=== PATIENT | female | born 1960 | race Caucasian/White ===

== ENCOUNTER → 2016-09-14 | Emergency (ER) | payer OTHER ==
[~2016-09-14] MED LIST: KETOROLAC TROMETHAMINE 60 MG/2 ML VIAL IM ONE; KETOROLAC TROMETHAMINE 60 MG/2 ML VIAL ONE; LIDOCAINE 5% TOPICAL PATCH TP ONE; OXYCODONE/APAP 5/325MG COMBO TABLET ONE; OXYCODONE/APAP 5/325MG COMBO TABLET PO ONE
[2016-09-14 07:02] VITALS: BP 157/96; PULSE 82; TEMP 99.6; BMI 29.0
--- NOTE | 2016-09-14 07:49 | PDOC ---
Attending Attestation - Resident Resident Name: Ernie Shane - ED Attending Attestation I have performed the following: I have examined & evaluated the patient, The case was reviewed & discussed with the resident, I agree w/resident's findings & plan, Exceptions are as noted - HPI HPI: 09/14/16 08:28 This is a 55 yo F with a history of HIV who presents to the Er with a complaint of severe left hip pain which began several days ago Pt has difficulty ambulating She has severe pain when she places weight on her left leg No trauma No fevers or chills No prior episodes like this - Physicial Exam PE: 09/14/16 08:31 On examination Left lateral hip tender to palpation No erythema Pain with leg motion No obvious signs of trauma - Medical Decision Making 09/14/16 08:32 Musculoskeletal pain R/o fracture Will give pain medications Will re assess Pt given Toradol and lidoderm patch Upon reassessment, pt feels much better she is seated on chair comfortably Will discharge to home Follow up with PMD Return to the ER for any other concerns or complaints
--- NOTE | 2016-09-14 07:56 | PDOC ---
History of Present Illness - General Chief Complaint: Pain, Acute Stated Complaint: LFT LEG PAIN Time Seen by Provider: 09/14/16 07:27 History Source: Patient Exam Limitations: No Limitations - History of Present Illness Initial Comments: 55 yo F with h/o HIV diagnosed 2 years ago, last CD4 count in 06/2016 was 1317, goes to [facility] and IDDM2 presented to the ED with L upper thigh pain x 2 days. 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 Denies trauma, fall, fever, chills , chest pain, sob. 09/14/16 09:52 Pain is minimally relieved with percocet. Will give toradol IM and lidocaine patch. 09/14/16 09:59 X-ray of L thigh shows no fracture. Past History - Past Medical History Allergies/Adverse Reactions: Allergies Allergy/AdvReac Type Severity Reaction Status Date / Time ceftriaxone sodium Allergy Severe Rash, hives Verified 06/17/15 16:06 [From Rocephin] Home Medications: Ambulatory Orders Albuterol Sulfate Inhaler - [Ventolin HFA Inhaler -] 2 inh PO Q6H #1 inh Abacavir/Dolutegravir/Lamivudi [Triumeq Tablet] 1 each PO DAILY #30 tablet 09/06 Alcohol Antiseptic Pads [Easy Touch Alcohol Prep Pads] 1 each TP BID #1 box Bacitracin - [Bacitracin Topical Ointment -] 1 applic TP TID #1 tube 09/06/16 Blood Sugar Diagnostic [Freestyle Test Strips] 1 each MC BID #1 box 09/06/16 Gabapentin [Neurontin] 300 mg PO HS #30 capsule 09/06/16 Insulin Glargine,Hum.rec.anlog [Touwallyo Solostar] 18 unit SQ HS #1 box 09/06/16 Insulin Lispro [Humalog Kwikpen U-100] 1 unit SQ TID #1 insuln.pen 09/06/16 Miscellaneous Medical Supply [Lancets] 1 each TD ASDIR #1 box 09/06/16 Valacyclovir HCl [Valtrex -] 1,000 mg PO TID #21 tablet 09/06/16 Pen Needle, Diabetic [Pentips] 1 each SQ HS #1 box 09/08/16 Lidocaine 5% Patch [Lidoderm -] 1 patch TP DAILY #7 patch 09/14/16 Anemia: No Asthma: Yes ( A CHILD) Cancer: No Cardiac Disorders: No CVA: No COPD: No CHF: No Dementia: No Diabetes: Yes Dialysis: Yes GI Disorders: No Disorders: No HTN: No Hypercholesterolemia: No HIV: Yes Liver Disease: No Psychiatric Problems: No Seizures: No Thyroid Disease: No Other medical history: Neuropathy - Surgical History Abdominal Surgery: No Appendectomy: No Cardiac Surgery: No Cholecystectomy: No Lung Surgery: No Neurologic Surgery: No Orthopedic Surgery: No - Reproductive History Cervical CA: No Dysfunctional Uterine Bleeding: No Ectopic : No Endometrial CA: No Polycystic Ovaries: No Tubal Ligation: No - Psycho/Social/Smoking Cessation Hx Anxiety: No Suicidal Ideation: No Smoking Status: No Smoking History: Current every day smoker Have you smoked in the past 12 months: Yes Number of Cigarettes Smoked Daily: 2 If you are a former smoker, when did you quit?: 3 Cigars Per Day: 0 Information on smoking cessation initiated: Yes 'Breaking Loose' booklet given: 09/27/13 Hx Alcohol Use: No Drug/Substance Use Hx: No Substance Use Type: None Hx Substance Use Treatment: No (N/A) Review of Systems - Review of Systems Able to Perform ROS?: Yes Is the patient limited Bahamian proficient: No Constitutional: No: Chills, Fever Respiratory: No: Cough, Shortness of Breath Cardiac (ROS): No: Chest Pain ABD/GI: No: Nausea, Vomiting Musculoskeletal: Yes: Joint Pain, Muscle Pain *Physical Exam - Vital Signs Last Vital Signs Temp Pulse Resp BP Pulse Ox 99.6 F 82 18 157/96 100 09/14/16 06:50 09/14/16 06:50 09/14/16 06:50 09/14/16 06:50 09/14/16 06:50 - Physical Exam General Appearance: No: Apparent Distress Respiratory/Chest: positive: Lungs Clear, Normal Breath Sounds Cardiovascular: positive: Regular Rhythm, Regular Rate, S1, S2. negative: Murmur Gastrointestinal/Abdominal: positive: Normal Bowel Sounds. negative: Tenderness Extremity: positive: Normal Range of Motion. negative: Cyanosis, Pedal Edema, Swelling, Calf Tenderness Neurologic: positive: Fully Oriented, Alert, Motor Strength 09/17 ED Treatment Course - RADIOLOGY Radiology Studies Ordered: Category Date Time Status FEMUR-LEFT [RAD] Stat Radiology 09/14/16 07:44 Ordered Medical Decision Making - Medical Decision Making 09/14/16 07:56 Will obtain X-ray to r/o acute pathology and give percocet for pain. May discharge if pain becomes better. 09/14/16 11:19 Patient feels much better after receiving toradol IM and lidocaine patch. Will discharge the patient home. *DC/Admit/Observation/Transfer Diagnosis at time of Disposition: Left thigh pain - Discharge Dispostion Disposition: HOME Condition at time of disposition: Fair Admit: No - Prescriptions Prescriptions: Lidocaine 5% Patch [Lidoderm -] 1 patch TP DAILY #7 patch - Referrals Referrals: Yelitza Pearson MD [Primary Care Provider] - - Patient Instructions Printed Discharge Instructions: DI for Leg Pain Additional Instructions: Please follow up with your primary care doctor, who can check blood-work for your leg pain if it becomes chronic. Please apply the lidocaine patch as directed by pharmacy. Please return to the emergency department or your primary care doctor for worsening or continued symptoms. - Post Discharge Activity Work/School Note: Back to Work
== END | disposition home or self-care (01) ==
LOC: JER 06:24
PROC: 3E0233Z Introduction of Anti-inflammatory into Muscle, Percutaneous Approach (ICD-10-PCS; principal; 2016-09-14)
DX: M79.652 Pain in left thigh (principal); E11.9 Type 2 diabetes mellitus without complications; Z79.4 Long term (current) use of insulin; Z21 Asymptomatic human immunodeficiency virus [HIV] infection status; G62.9 Polyneuropathy, unspecified; F17.210 Nicotine dependence, cigarettes, uncomplicated
CPT/HCPCS: 73552-TC-LT; 96372; 99284-25

== ENCOUNTER 2017-10-30 12:30 | Observation (INO) | payer OTHER ==
[2017-10-30] MEDS ORDERED: SODIUM CHLORIDE 1,000 ML IV STA (13:44)
--- NOTE | 2017-10-30 13:49 | PDOC ---
Attending Attestation - HPI HPI: 10/30/17 15:17 The patient is a 57 year old female with a significant PMH of HIV and DM who presents to the emergency department with abdominal rash since this morning. The patient reports that she noticed her abdominal rash this morning after waking up out of bed. The patient reports that her rash was not previously there from the night before. The patient also reports a subjective fever that she experienced least night by which she took tylenol for. She denies any sick contact, work exposure or recent travel. The patient denies chills, nausea, vomit, diarrhea constipation or urinary symptoms. She denies chest pain, shortness of breath, headache and dizziness.the patient denies any other complaints. Allergies: Ceftriaxone Social history: current smoker PCP: Dr. Yelitza Wallace - Physicial Exam PE: 10/30/17 15:17 GENERAL: Awake, alert, and fully oriented, in no acute distress HEAD: No signs of trauma EYES: PERRLA, EOMI, sclera anicteric, conjunctiva clear ENT: Auricles normal inspection, hearing grossly normal, nares patent, oropharynx clear without exudates. Moist mucosa NECK: Normal ROM, supple, no lymphadenopathy, JVD, or masses LUNGS: Breath sounds equal, clear to auscultation bilaterally. No wheezes, and no crackles HEART: (+)Tachycardic Regular rhythm, normal S1 and S2, no murmurs, rubs or gallops ABDOMEN: (+)abdominal wall cellulitis indicated. belly soft, nontender, normoactive bowel sounds. No guarding, no rebound. No masses EXTREMITIES: Normal range of motion, no edema. No clubbing or cyanosis. No cords, erythema, or tenderness NEUROLOGICAL: Cranial nerves II through XII grossly intact. Normal speech, normal gait SKIN: Warm, Dry, normal turgor, no rashes or lesions noted. Documentation prepared by Kyle Scott, acting as medical care administrator for Velma Ruff MD. <Kyle Scott - Last Filed: 10/30/17 15:17> - Resident Resident Name: LisetArmando bhandari - ED Attending Attestation I have performed the following: I have examined & evaluated the patient, The case was reviewed & discussed with the resident, I agree w/resident's findings & plan, Exceptions are as noted - Medical Decision Making 10/30/17 13:47 I, Dr. Velma Ruff, DO, attest that this document has been prepared under my direction and personally reviewed by me in its entirety. I further attest, that it accurately reflects all work, treatment, procedures and medical decision -making performed by me. 10/30/17 13:47 a/p: 57yo female with hx of HIV on HAART presents for abd wall swelling -concern for abd wall cellulitis -also with small indurated area to upper back -abd wall cellutlis is circumferential around the umbilicus -will send labs -cultures -will discussed with Dr. Cordova -PMD is Dr. Pearson 10/30/17 14:53 resident discussed the case with Dr. Jimenez who accept pt to service 10/30/17 15:19 pt will be admitted for IV abx <Velma Ruff - Last Filed: 10/30/17 15:20> Heart Score/ECG Review - ECG Intrepretation Comment:: 10/30/17 15:19 sinus at 89, nl axis, nl interval, no acute st/t wave findings <Velma Ruff - Last Filed: 10/30/17 15:20>
--- NOTE | 2017-10-30 13:52 | PDOC ---
History of Present Illness - General Chief Complaint: Rash Stated Complaint: RASH,FEVER Time Seen by Provider: 10/30/17 12:58 - History of Present Illness Initial Comments: 10/30/17 13:44 57 year old female with a hx of HIV and DM presents to the hospital with an abdominal wall rash that she noticed this morning after waking up. She states that it was not present yesterday. Reports subjective fevers last night, for which she took tylenol. Denies any sick contacts, recent travel. Denies any occupational exposure. Denies current fevers, chills, chest pain, shortness of breath, abdominal pain. Allergies: Ceftriaxone Smoke: current smoker Alcohol: none PCP: Dr. Yelitza aWllace Past History - Past Medical History Allergies/Adverse Reactions: Allergies Allergy/AdvReac Type Severity Reaction Status Date / Time ceftriaxone sodium Allergy Severe Rash, hives Verified 10/30/17 12:42 [From Rocephin] Home Medications: Ambulatory Orders Albuterol Sulfate Inhaler - [Ventolin HFA Inhaler -] 2 inh PO Q6H #1 inh Alcohol Antiseptic Pads [Easy Touch Alcohol Prep Pads] 1 each TP BID #1 box Blood Sugar Diagnostic [Freestyle Test Strips] 1 each MC BID #1 box 09/06/16 Insulin Glargine,Hum.rec.anlog [Toujeo Solostar] 18 unit SQ HS #1 box 09/06/16 Insulin Lispro [Humalog Kwikpen U-100] 1 unit SQ TID #1 insuln.pen 09/06/16 Miscellaneous Medical Supply [Lancets] 1 each TD ASDIR #1 box 04/04/17 Multivitamin with Minerals [Icaps Plus] 1 each PO DAILY #30 tablet 04/04/17 Pen Needle, Diabetic [Pen Needle] 1 each MC ASDIR #1 box 04/04/17 Abacavir/Dolutegravir/Lamivudi [Triumeq Tablet] 1 each PO DAILY #30 tablet 04/25 Anemia: No Asthma: Yes ( A CHILD) Cancer: No Cardiac Disorders: No CVA: No COPD: No CHF: No Dementia: No Diabetes: No Dialysis: Yes GI Disorders: No Disorders: No HTN: No Hypercholesterolemia: No Liver Disease: No Psychiatric Problems: No Seizures: No Thyroid Disease: No - Surgical History Abdominal Surgery: No Appendectomy: No Cardiac Surgery: No Cholecystectomy: No Lung Surgery: No Neurologic Surgery: No Orthopedic Surgery: No - Reproductive History Cervical CA: No Dysfunctional Uterine Bleeding: No Ectopic : No Endometrial CA: No Polycystic Ovaries: No Tubal Ligation: No - Suicide/Smoking/Psychosocial Hx Smoking Status: No Smoking History: Unknown if ever smoked Have you smoked in the past 12 months: Yes Number of Cigarettes Smoked Daily: 2 If you are a former smoker, when did you quit?: 3 Cigars Per Day: 0 'Breaking Loose' booklet given: 09/27/13 Hx Alcohol Use: No Drug/Substance Use Hx: No Substance Use Type: None Hx Substance Use Treatment: No (N/A) Review of Systems - Review of Systems Able to Perform ROS?: Yes Is the patient limited Armenian proficient: Yes Constitutional: Yes: Fever Respiratory: No: Cough, Shortness of Breath Cardiac (ROS): No: Edema, Chest Tightness ABD/GI: No: Diarrhea, Vomiting Integumentary: Yes: Pruritus, Rash *Physical Exam - Vital Signs Last Vital Signs Temp Pulse Resp BP Pulse Ox 98.7 F 100 H 20 119/70 97 10/30/17 12:39 10/30/17 12:39 10/30/17 12:39 10/30/17 12:39 10/30/17 12:39 ED Treatment Course - LABORATORY CBC & Chemistry Diagram: 10/30/17 13:55 10/30/17 13:55 - RADIOLOGY Radiology Studies Ordered: Category Date Time Status CHEST PA & LAT [RAD] Stat Radiology 10/30/17 13:39 Ordered Medical Decision Making - Medical Decision Making 10/30/17 14:32 57 year old female with hx HIV and DM presents for abdominal rash Appears like an abdominal wall cellulitis Will give vancomycin -d/w Dr. Cordova and Dr. Jimenez -Will admit obs *DC/Admit/Observation/Transfer Diagnosis at time of Disposition: Cellulitis - Discharge Dispostion Condition at time of disposition: Stable Decision to Admit order: Yes - Referrals - Patient Instructions - Post Discharge Activity
[2017-10-30] MEDS ORDERED: VANCOMYCIN 1,000 MG in DEXTROSE 5%-WATER - 250 ML IVPB ONE (13:53)
[2017-10-30 14:06] LABS: BASO % 0.2 % (0-2.0); EOS % 1.5 % (0-4.5); HEMATOCRIT 38.4 % (32.4-45.2); HEMOGLOBIN 12.9 GM/dL (10.7-15.3); LYMPH % 33.4 % (8-40); MCH 27.8 pg (25.7-33.7); MCHC 33.6 g/dl (32.0-36.0); MEAN CELL VOLUME 82.8 fl (80-96); MEAN PLT VOLUME 8.9 fl (7.5-11.1); MONO % 7.9 % (3.8-10.2); PLATELET COUNT 232 K/MM3 (134-434); RBC 4.64 M/mm3 (3.60-5.2); RDW 13.3 % (11.6-15.6); WHITE BLOOD COUNT 10.4 K/mm3 (4.0-10.0)
[2017-10-30] MEDS ORDERED: VANCOMYCIN 1 GRAM (PRE-DOCKED) 1,000 MG/250 ML BAG IVPB ONE (14:25)
[2017-10-30 14:31] LABS: ALBUMIN 3.2 g/dl (3.4-5.0); ANION GAP 6 (8-16); BLOOD UREA NITROGEN 12 mg/dL (7-18); CHLORIDE 102 mmol/L (98-107); CO2 30 mmol/L (21-32); CREATININE 0.7 mg/dL (0.55-1.02); GLUCOSE,RANDOM 286 mg/dL (74-106); POTASSIUM 4.1 mmol/L (3.5-5.1); SGOT/AST 17 U/L (15-37); SGPT/ALT 29 U/L (12-78); SODIUM 138 mmol/L (136-145)
[2017-10-30 14:32] LABS: ALK PHOS 87 U/L (45-117); BILIRUBIN,TOTAL 0.4 mg/dL (0.2-1.0); TOT PROT 6.7 g/dl (6.4-8.2)
[2017-10-30 14:38] LABS: URINE APPEARANCE CLOUDY; URINE BILIRUBIN NEGATIVE (<2.0 mg/dL); URINE COLOR YELLOW; URINE GLUCOSE (UA) 3+ (NEGATIVE); URINE KETONE NEGATIVE (NEGATIVE); URINE LEUK ESTERASE NEGATIVE (NEGATIVE); URINE NITRITE NEGATIVE (NEGATIVE); URINE PROTEIN NEGATIVE (NEGATIVE); URINE UROBILINOGEN NEGATIVE mg/dL (0.2-1.0)
[2017-10-30] MEDS ORDERED: ACETAMINOPHEN 325 MG TABLET (FP) PO PRN (16:29)
[2017-10-30] MEDS ORDERED: ALBUTEROL SO4 18 GM HFA INHALER IH SCH (16:30)
--- NOTE | 2017-10-30 17:06 | PN ---
Progress Note (short form) - Note Progress Note: ID consult dictated imp/reccd 57 year old female with DM on insulin, hiv stable, on triumeq with vl suppressed , cd4 1273 developed erythema around her umbilicus yesterday, this am noted it became a bit scaly and came to ED no fever or chills also with small pustule upper back no prior history of skin lesions no insct bites or pet scratches CBC, BMP 10/30/17 13:55 10/30/17 13:55 cellulitis of the abdominal wall pustule on the upper back stable HIV ceftriaxone makes her nauseaous and vomit continue vancomycin given pustule on back, will cover abdomen too (looks like strep on abd, staph on back) continue HIV meds- ordered DM management per Dr Jimenez f/u cultures Problem List - Problems (1) Cellulitis Code(s): L03.90 - CELLULITIS, UNSPECIFIED (2) Pustule Code(s): L08.9 - LOCAL INFECTION OF THE SKIN AND SUBCUTANEOUS TISSUE, UNSP (3) HIV (human immunodeficiency virus infection) Code(s): Z21 - ASYMPTOMATIC HUMAN IMMUNODEFICIENCY VIRUS INFECTION STATUS (4) Diabetes mellitus Code(s): E11.9 - TYPE 2 DIABETES MELLITUS WITHOUT COMPLICATIONS Qualifiers: Diabetes mellitus type: type 1 Diabetes mellitus complication status: without complication Qualified Code(s): E10.9 - Type 1 diabetes mellitus without complications
[2017-10-30] MEDS ORDERED: ALBUTEROL SO4 18 GM HFA INHALER IH PRN (17:19)
[2017-10-30] MEDS: INSULIN SLIDING SCALE (NOVOLOG) 1 VIAL SQ SCH ×2 (17:27→22:59)
[2017-10-30] MEDS ORDERED: INSULIN (NOVOLOG) ASPART 100 UNITS/ML 10ML VIAL ONE ×2 (17:29→22:47)
--- NOTE | 2017-10-30 18:45 | CONS ---
DATE OF CONSULTATION: 10/30/2017 REQUESTED BY: The hospitalist service, Dr. Jimenez. The patient was seen in the emergency room on October 30, 2017. This is a 57-year-old woman with diabetes, on insulin. She has HIV, very stable on Triumeq with viral load suppressed and a CD4 of 1273 from September of this year. She is followed at the [facility]. She, yesterday, developed some erythema around her umbilicus. This is not where she injects her insulin. This morning, she noted that part of it became a bit scaly. She got scared and came to the ER. She is also complaining of a small pustule on her upper back. She has had no fevers or chills. There is no nausea or vomiting. She has never had this before. There has been no insect bite or pet scratches. PAST MEDICAL HISTORY: Notable for diabetes. SURGICAL HISTORY: Notable for section. She also is HIV positive and is quite stable. ALLERGIES: CEFTRIAXONE, WHICH SHE SAYS MAKES HER NAUSEOUS AND VOMIT. SOCIAL HISTORY: She lives in the community. She smokes cigarettes. There is no history of any alcohol or substance use. MEDICATIONS AT HOME: Include albuterol, insulin, multivitamins, and Triumeq. FAMILY HISTORY: Noncontributory. REVIEW OF SYSTEMS: She has had no nausea, vomiting, diarrhea or dysuria, fever, or chills. PHYSICAL EXAMINATION: Vital Signs: She is afebrile. She actually reports she is starting to feel better already. She received a dose of vancomycin in the ER. Temperature is 98.7, pulse of 100, blood pressure 119/70, respiratory rate is 20. She weighs 63 kg. HEENT: She is normocephalic. Eyes are anicteric. Neck: Supple. Lungs: Clear to auscultation. Heart: Regular rate and rhythm. Abdomen: Soft, nontender. Extremities: Without edema. Skin: She has an area of erythema surrounding her umbilicus, one of part of which is honey crusting. She has a 1.5-cm pustule on her upper back as well. LABORATORY: Notable for a white count of 10.4, hemoglobin 12.9, platelets of 232, BUN is 12 and creatinine is 0.7. Blood cultures have been sent. Urinalysis is negative except for glucose. IN SUMMARY: This is a 57-year-old woman with diabetes and HIV admitted with cellulitis of the abdominal wall and a pustule on the back with an adverse reaction to ceftriaxone in the past. I would continue vancomycin. The pustule on the back is concerning for community MRSA, though I suspect the abdomen is most likely a strep infection given the honey-crusting appearance. I would continue her HIV medications as ordered as she did not bring her medications with her. Diabetes management per the primary care by the primary team. I will follow up cultures and make further recommendations. CADY DEAN M.D. [id number]
[2017-10-30] MEDS ORDERED: INSULIN (LEVEMIR) 100 UNITS/ML UNITS SQ SCH (22:00)
[2017-10-30] MEDS ORDERED: ATORVASTATIN CA 10 MG TABLET (FP) PO SCH (22:00)
[2017-10-30] MEDS ORDERED: INSULIN (LEVEMIR) 100 UNITS/ML UNITS SQ ONE (22:47)
[2017-10-30] MEDS: HEPARIN NA (PORCINE) 5,000 UNITS/ML 1ML VIAL SQ SCH (22:59)
[2017-10-30] MEDS: lamiVUDine 150 MG TABLET PO SCH (22:59)
[2017-10-30] MEDS: ABACAVIR SULFATE 300 MG TABLET PO SCH (22:59)
[2017-10-31] MEDS ORDERED: VANCOMYCIN 1,000 MG in DEXTROSE 5%-WATER - 250 ML IVPB SCH (02:00)
[2017-10-31 02:31] VITALS: BMI 26.2
[2017-10-31] MEDS: INSULIN SLIDING SCALE (NOVOLOG) 1 VIAL SQ SCH ×2 (06:14→12:35)
--- NOTE | 2017-10-31 07:59 | PN ---
Progress Note (short form) - Note Progress Note: ID Afebrile Pustular dermatitis right periumbilical area min erythema Small discrete pustule mid upper back Microbiology 09/27/13 12:40 Urine - Urine Clean Catch Urine Culture - Final Escherichia Coli Laboratory Tests 09/27/17 09/27/17 10/30/17 11:35 11:35 13:55 WBC 10.4 H RBC 4.64 Plt Count 232 BUN Creatinine Absolute CD4 Michie 1273 HIV-1 RNA (PCR) <20 10/30/17 13:55 WBC RBC Plt Count BUN 12 Creatinine 0.7 Absolute CD4 Michie HIV-1 RNA (PCR) Assessment Pustular dermatitis cellulitis improved HIV stable doing well Diabetes Plan ? MRSA infection Consider change to oral antibiotics Clinda 450mg tid for 5 -7 days Check blood cultures Lico HERNANDEZ
[2017-10-31 08:14] LABS: BASO % 0.1 % (0-2.0); EOS % 2.9 % (0-4.5); HEMATOCRIT 36.5 % (32.4-45.2); HEMOGLOBIN 12.3 GM/dL (10.7-15.3); LYMPH % 41.9 % (8-40); MCH 27.9 pg (25.7-33.7); MCHC 33.6 g/dl (32.0-36.0); MEAN CELL VOLUME 82.9 fl (80-96); MEAN PLT VOLUME 8.9 fl (7.5-11.1); MONO % 10.1 % (3.8-10.2); PLATELET COUNT 213 K/MM3 (134-434); RBC 4.41 M/mm3 (3.60-5.2); RDW 13.1 % (11.6-15.6); WHITE BLOOD COUNT 7.6 K/mm3 (4.0-10.0)
[2017-10-31 08:34] LABS: CHLORIDE 109 mmol/L (98-107); POTASSIUM 3.7 mmol/L (3.5-5.1); SODIUM 143 mmol/L (136-145); TRIGLYCERIDES 88 mg/dL (35-160)
[2017-10-31 08:45] LABS: CHOLESTEROL 81 mg/dL (50-200); HDL CHOLESTEROL 32 mg/dL (40-60)
[2017-10-31 08:49] LABS: ALBUMIN 2.8 g/dl (3.4-5.0); ALK PHOS 62 U/L (45-117); ANION GAP 7 (8-16); BILIRUBIN,TOTAL 0.4 mg/dL (0.2-1.0); BLOOD UREA NITROGEN 7 mg/dL (7-18); CALCIUM 8.4 mg/dL (8.5-10.1); CO2 27 mmol/L (21-32); CREATININE 0.4 mg/dL (0.55-1.02); GLUCOSE,RANDOM 93 mg/dL (74-106); SGOT/AST 15 U/L (15-37); SGPT/ALT 23 U/L (12-78); TOT PROT 6.2 g/dl (6.4-8.2)
[2017-10-31] MEDS ORDERED: RAMIPRIL 2.5 MG CAPSULE (FP) PO SCH (10:00)
[2017-10-31] MEDS ORDERED: DOLUTEGRAVIR SODIUM 50 MG TABLET PO SCH (10:00)
[2017-10-31] MEDS ORDERED: MULTIVITAMINS THER W-MINERALS COMBO TABLET (FP) PO SCH (10:00)
[2017-10-31] MEDS ORDERED: PATIENT'S OWN MEDICATION (NON-FORMULARY) (Multivitamin With Minerals [Icaps Plus] 1 EACH) PO SCH (10:00)
[2017-10-31] MEDS ORDERED: PT OWN MED DRAWER 7, Y5N ONE ×2 (10:18)
[2017-10-31] MEDS: HEPARIN NA (PORCINE) 5,000 UNITS/ML 1ML VIAL SQ SCH (10:20)
[2017-10-31] MEDS: ABACAVIR SULFATE 300 MG TABLET PO SCH (10:20)
[2017-10-31] MEDS: lamiVUDine 150 MG TABLET PO SCH (10:20)
[2017-10-31 13:37] VITALS: BP 109/55; PULSE 72; TEMP 99.1
--- NOTE | 2017-10-31 13:59 | HP ---
Admitting History and Physical - Primary Care Physician PCP: Yelitza Pearson - Admission History of Present Illness: Pt seen/ examined chart reviewed Office records reviewed Per er records 57 year old female with a hx of HIV and DM presents to the hospital with an abdominal wall rash that she noticed this morning after waking up. She states that it was not present yesterday. Reports subjective fevers last night, for which she took tylenol. Denies any sick contacts, recent travel. Denies any occupational exposure. Denies current fevers, chills, chest pain, shortness of breath, abdominal pain. Allergies: Ceftriaxone Smoke: current smoker Alcohol: none Pt admitted for cellulititis -- started on vanco pt seen / examined today wants to go home - dont want to stay says i/d told - can go home i/d f/u noted / appreciated Limitations to Obtaining History: No Limitations - Past Medical History Cardiovascular: No: Hyperlipdemia ...LMP: 07/15/11 Infectious Disease: Yes: HIV Endocrine: Yes: Diabetes Mellitus - Past Surgical History Past Surgical History: Yes: , Tubal Ligation - Smoking History Smoking history: Unknown if ever smoked Have you smoked in the past 12 months: Yes Aproximately how many cigarettes per day: 2 If you are a former smoker, when did you quit?: 3 - Alcohol/Substance Use Hx Alcohol Use: No History of Substance Use: reports: None - Social History ADL: Independent History of Recent Travel: No Home Medications - Allergies Allergies/Adverse Reactions: Allergies Allergy/AdvReac Type Severity Reaction Status Date / Time ceftriaxone sodium Allergy Severe Rash, hives Verified 10/30/17 12:42 [From Rocephin] - Home Medications Home Medications: Ambulatory Orders Albuterol Sulfate Inhaler - [Ventolin HFA Inhaler -] 2 inh PO Q6H #1 inh Blood Sugar Diagnostic [Freestyle Test Strips] 1 each MC BID #1 box 09/06/16 Insulin Lispro [Humalog Kwikpen U-100] 1 unit SQ TID #1 insuln.pen 09/06/16 Multivitamin with Minerals [Icaps Plus] 1 each PO DAILY #30 tablet 04/04/17 Pen Needle, Diabetic [Pen Needle] 1 each MC ASDIR #1 box 04/04/17 Abacavir/Dolutegravir/Lamivudi [Triumeq Tablet] 1 each PO DAILY #30 tablet 04/25 Abacavir Sulfate [Ziagen -] 300 mg PO BID tablet 10/31/17 Acetaminophen [Tylenol .Regular Strength -] 650 mg PO Q4H PRN tablet 10/31/17 Atorvastatin Ca [Lipitor] 10 mg PO HS #30 tablet 10/31/17 Clindamycin [Cleocin -] 450 mg PO Q8H #63 capsule 10/31/17 Dolutegravir Sodium [Tivicay] 50 mg PO DAILY tablet 10/31/17 Insulin Glargine,Hum.rec.anlog [Toujeo Solostar] 22 unit SQ HS #1 box 10/31/17 Lamivudine [Epivir -] 150 mg PO BID tablet 10/31/17 Ramipril [Altace] 2.5 mg PO DAILY #30 capsule 10/31/17 Family Disease History - Family Disease History Family Disease History: Diabetes: Sister (Breast Ca ), CA: Father (Pancreas Ca ) , Sister Review of Systems - Review of Systems Constitutional: reports: No Symptoms Eyes: reports: No Symptoms HENT: reports: No Symptoms Neck: reports: No Symptoms Cardiovascular: reports: No Symptoms Respiratory: reports: No Symptoms Gastrointestinal: reports: No Symptoms Genitourinary: reports: No Symptoms Integumentary: reports: Blister, Erythema Neurological: reports: No Symptoms Psychiatric: reports: No Symptoms Physical Examination Vital Signs: Vital Signs Temperature 99.1 F 10/31/17 10:00 Pulse Rate 72 10/31/17 10:00 Respiratory Rate 20 10/31/17 10:00 Blood Pressure 109/55 10/31/17 10:00 O2 Sat by Pulse Oximetry (%) 100 10/31/17 08:00 Constitutional: Yes: No Distress, Calm Eyes: Yes: Conjunctiva Clear Neck: Yes: Supple Cardiovascular: Yes: Regular Rate and Rhythm Respiratory: Yes: CTA Bilaterally Gastrointestinal: Yes: Soft Edema: No Integumentary: Yes: Erythema. No: Other (pustules + on anterior abdominal wall / back) Neurological: Yes: Alert Labs: CBC, BMP 10/31/17 07:30 10/31/17 07:30 Imaging - Results Chest X-ray: Report Reviewed Problem List - Problems (1) Uncontrolled diabetes mellitus Code(s): E11.65 - TYPE 2 DIABETES MELLITUS WITH HYPERGLYCEMIA (2) Cellulitis Code(s): L03.90 - CELLULITIS, UNSPECIFIED (3) Pustule Code(s): L08.9 - LOCAL INFECTION OF THE SKIN AND SUBCUTANEOUS TISSUE, UNSP (4) HIV antibody positive Code(s): Z21 - ASYMPTOMATIC HUMAN IMMUNODEFICIENCY VIRUS INFECTION STATUS Assessment/Plan Discussed will d/c on po abx pt non compliant with f/u treatment did not follow as advised in office strongly counselled increase insulin add jac and statin meds reconcilled sent to pharmacy discussed with nursing staff also time spend 40 min
--- NOTE | 2017-10-31 14:16 | EKG ---
Test Reason : Blood Pressure : / mmHG Vent. Rate : 089 BPM Atrial Rate : 089 BPM P-R Int : 128 ms QRS Dur : 090 ms QT Int : 352 ms P-R-T Axes : 063 032 050 degrees QTc Int : 428 ms NORMAL SINUS RHYTHM NORMAL ECG WHEN COMPARED WITH ECG OF 27-SEP-2013 14:10, NO SIGNIFICANT CHANGE WAS FOUND Confirmed by DIONY BEACH MD ([id number]) on 10/31/2017 2:15:59 PM Referred By: Confirmed By:DIONY BEACH MD
== END 2017-10-31 14:29 | disposition home or self-care (01) ==
LOC: JER 12:30 → JERBED 14:35 → J8W 23:51
PROVIDERS: ADMIT Internal Medicine; ATTEND Internal Medicine
PROC: 3E03329 Introduction of Other Anti-infective into Peripheral Vein, Percutaneous Approach (ICD-10-PCS; principal; 2017-10-30)
PROC: 3E0337Z Introduction of Electrolytic and Water Balance Substance into Peripheral Vein, Percutaneous Approach (ICD-10-PCS; 2017-10-30)
PROC: 3E013VG Introduction of Insulin into Subcutaneous Tissue, Percutaneous Approach (ICD-10-PCS; 2017-10-30)
PROC: 3E013GC Introduction of Other Therapeutic Substance into Subcutaneous Tissue, Percutaneous Approach (ICD-10-PCS; 2017-10-30)
DX: L03.311 Cellulitis of abdominal wall (principal); L08.9 Local infection of the skin and subcutaneous tissue, unspecified; Z21 Asymptomatic human immunodeficiency virus [HIV] infection status; E11.65 Type 2 diabetes mellitus with hyperglycemia; Z79.4 Long term (current) use of insulin; Z88.1 Allergy status to other antibiotic agents
CPT/HCPCS: 36415; 71046-TC-FY; 80053; 80061; 81003; 82962; 83036; 83721; 85025; 85651; 87040; 87086; 93005; 93010; 99285-25; G0378; J1644; J7030

== ENCOUNTER 2018-05-24 12:21 | Inpatient (IN) | payer OTHER ==
[2018-05-24] MEDS ORDERED: VANCOMYCIN 1 GRAM (PRE-DOCKED) 1,000 MG/250 ML BAG IVPB ONE ×2 (12:59→14:07)
--- NOTE | 2018-05-24 13:04 | PDOC ---
History of Present Illness - General Chief Complaint: Bite Stated Complaint: RASH, insect bite Time Seen by Provider: 05/24/18 12:53 - History of Present Illness Initial Comments: 05/24/18 13:01 57-year-old female with neck swelling and redness times one day after which she believes is a bug bite. She is a diabetic Past History - Past Medical History Allergies/Adverse Reactions: Allergies Allergy/AdvReac Type Severity Reaction Status Date / Time ceftriaxone sodium Allergy Severe Rash, hives Verified 05/24/18 12:29 [From Rocephin] Home Medications: Ambulatory Orders Multivitamin with Minerals [Icaps Plus] 1 each PO DAILY #30 tablet 04/04/17 Abacavir/Dolutegravir/Lamivudi [Triumeq 600-50-300 mg Tablet] 1 each PO DAILY # 30 tablet 11/22/17 Albuterol Sulfate Inhaler - [Ventolin HFA Inhaler -] 2 inh PO Q6H #1 inh Blood Sugar Diagnostic [Freestyle Test Strips] 1 each MC BID #1 box 11/22/17 Insulin Glargine,Hum.rec.anlog [Toujeo Solostar] 22 unit SQ HS #1 box 11/22/17 Insulin Lispro [Humalog Kwikpen U-100] 1 unit SQ TID #1 insuln.pen 11/22/17 Pen Needle, Diabetic [Pen Needle] 1 each MC ASDIR #1 box 11/22/17 Loratadine [Claritin -] 10 mg PO DAILY #30 tablet 03/08/18 Anemia: No Asthma: Yes ( A CHILD) COPD: No Diabetes: Yes Dialysis: Yes Psychiatric Problems: No - Reproductive History Cervical CA: No Dysfunctional Uterine Bleeding: No Ectopic : No Endometrial CA: No Polycystic Ovaries: No Tubal Ligation: No - Suicide/Smoking/Psychosocial Hx Smoking Status: No Smoking History: Never smoked Have you smoked in the past 12 months: Yes Number of Cigarettes Smoked Daily: 2 If you are a former smoker, when did you quit?: 3 Cigars Per Day: 0 Information on smoking cessation initiated: No 'Breaking Loose' booklet given: 09/27/13 Hx Alcohol Use: No Drug/Substance Use Hx: No Substance Use Type: None Hx Substance Use Treatment: No (N/A) Review of Systems - Review of Systems Constitutional: No: Fever Integumentary: Yes: Erythema, Lesions *Physical Exam - Vital Signs Last Vital Signs Temp Pulse Resp BP Pulse Ox 98 F 74 18 127/72 99 05/24/18 12:27 05/24/18 12:27 05/24/18 12:27 05/24/18 12:27 05/24/18 12:27 - Physical Exam Comments: 05/24/18 13:02 HEAD: NC/AT EYES: Conjuntiva clear Ears: Canals and TM's normal NOSE: No d/c THROAT: Moist mucous membrances, oral pharanx clear, uvula midline NECK: Supple; there is erythema induration and losing vesicle on the undersurface of the chin and anterior aspect of the neck. CARDIAC: S1 S2 LUNGS: CTA Full and Equal breath sounds ABDOMEN: Soft NT ND MS: Full ROM in all joints without edema NEUROLOGIC: No gross sensory or motor deficits, NVID SKIN: Normal color and temperature no lesions or rashes Moderate Sedation - Procedure Monitoring Vital Signs: Procedure Monitoring Vital Signs Temperature 98 F 05/24/18 12:27 Pulse Rate 74 05/24/18 12:27 Respiratory Rate 18 05/24/18 12:27 Blood Pressure 127/72 05/24/18 12:27 O2 Sat by Pulse Oximetry (%) 99 05/24/18 12:27 Medical Decision Making - Medical Decision Making 05/24/18 13:03 This is an afebrile diabetic female with cellulitis of her neck. Most likely an abscess. I will transfer to the main emergency room preliminary lab work ordered she will require a CT scan with IV contrast *DC/Admit/Observation/Transfer Diagnosis at time of Disposition: Cellulitis and abscess of neck - Referrals - Patient Instructions - Post Discharge Activity
[2018-05-24 13:29] LABS: BASO % 0.3 % (0-2.0); EOS % 2.4 % (0-4.5); HEMATOCRIT 36.7 % (32.4-45.2); HEMOGLOBIN 12.7 GM/dL (10.7-15.3); LYMPH % 36.1 % (8-40); MCH 28.9 pg (25.7-33.7); MCHC 34.6 g/dl (32.0-36.0); MEAN CELL VOLUME 83.5 fl (80-96); MEAN PLT VOLUME 9.3 fl (7.5-11.1); MONO % 8.1 % (3.8-10.2); NEUT % 53.1 % (42.8-82.8); PLATELET COUNT 219 K/MM3 (134-434); RDW 13.3 % (11.6-15.6); WHITE BLOOD COUNT 9.3 K/mm3 (4.0-10.0)
[2018-05-24 13:41] LABS: INR 1.07 (0.83-1.09); PROTHROMBIN TIME (PATIENT) 12.6 SEC (9.7-13.0)
[2018-05-24 13:53] LABS: ALBUMIN 3.4 g/dl (3.4-5.0); ALK PHOS 107 U/L (45-117); ANION GAP 4 MMOL/L (8-16); BILIRUBIN,TOTAL 0.2 mg/dL (0.2-1); BLOOD UREA NITROGEN 12 mg/dL (7-18); CALCIUM 8.9 mg/dL (8.5-10.1); CHLORIDE 100 mmol/L (98-107); CO2 31 mmol/L (21-32); CREATININE 0.8 mg/dL (0.55-1.3); POTASSIUM 4.3 mmol/L (3.5-5.1); SGOT/AST 12 U/L (15-37); SGPT/ALT 25 U/L (13-61); SODIUM 135 mmol/L (136-145); TOT PROT 7.1 g/dl (6.4-8.2)
[2018-05-24 14:00] LABS: GLUCOSE,RANDOM 420 mg/dL (74-106)
[2018-05-24] MEDS ORDERED: SODIUM CHLORIDE 1,000 ML IV STA (14:02)
--- NOTE | 2018-05-24 14:42 | PDOC ---
*Physical Exam - Vital Signs Last Vital Signs Temp Pulse Resp BP Pulse Ox 98 F 74 18 127/72 99 05/24/18 12:27 05/24/18 12:27 05/24/18 12:27 05/24/18 12:27 05/24/18 12:27 ED Treatment Course - LABORATORY CBC & Chemistry Diagram: 05/24/18 13:01 05/24/18 13:15 - ADDITIONAL ORDERS Additional order review: Laboratory Results 05/24/18 05/24/18 13:15 13:01 PT with INR 12.60 INR 1.07 Sodium 135 L Potassium 4.3 Chloride 100 Carbon Dioxide 31 Anion Gap 4 L BUN 12 Creatinine 0.8 Creat Clearance w eGFR > 60 Random Glucose 420 H* Calcium 8.9 Total Bilirubin 0.2 AST 12 L ALT 25 Alkaline Phosphatase 107 Total Protein 7.1 Albumin 3.4 05/24/18 13:01 RBC 4.40 MCV 83.5 MCHC 34.6 RDW 13.3 MPV 9.3 Neutrophils % 53.1 Lymphocytes % 36.1 D Monocytes % 8.1 Eosinophils % 2.4 D Basophils % 0.3 - RADIOLOGY Radiology Studies Ordered: Category Date Time Status SOFT TISSUE NECK CT WITH CONTR [CT] Stat CT Scan 05/24/18 14:04 Ordered - Medications Given in the ED: ED Medications Discontinued Medications Generic Name Dose Route Start Last Admin Trade Name Chivo PRN Reason Stop Dose Admin Vancomycin HCl 1,000 mg 05/24/18 12:59 05/24/18 14:22 Vancomycin (Pre-Docked) IVPB 05/24/18 13:00 1,000 mg ONCE ONE Administration Protocol Medical Decision Making - Medical Decision Making 05/24/18 14:45 Patient received from provider in the fast track since patient is concerning for cellulitis and soft tissue involvement. Patient is also diabetic with HIV. Patient states something she believes that her 2 days ago and area continues to itch but now swollen and red. Patient denies fever, chills, difficult swallowing or headache. Plan pending CT and will be given IV fluids along with vancomycin. wound culture also obtained 05/24/18 16:24 Laboratory Tests 05/24/18 05/24/18 05/24/18 13:01 13:01 13:15 WBC 9.3 Hgb 12.7 Hct 36.7 Neutrophils % 53.1 PT with INR 12.60 INR 1.07 Sodium 135 L Potassium 4.3 Chloride 100 Carbon Dioxide 31 Anion Gap 4 L BUN 12 Creatinine 0.8 Creat Clearance w eGFR > 60 Random Glucose 420 H* Calcium 8.9 Total Bilirubin 0.2 AST 12 L ALT 25 Alkaline Phosphatase 107 Total Protein 7.[address] shows cutaneous and subcutaneous edema seen bilaterally at the level of the upper anterior neck consistent with history of cellulitis. There is equivocal mild bilateral symmetric prominence of the submandibular glands and possible mild increased contrast enhancement. Correlate clinically regarding the possibility of acute versus subacute sialadenitis. Also noted is a 1.1 left eyelid lobe nodule. Correlate with nonemergent sonogram. Several nonspecific mildly enlarged bilateral submental and submandibular triangle lymph nodes are seen which could be reactive in nature. Patient will be admitted to [facility]. *DC/Admit/Observation/Transfer Diagnosis at time of Disposition: Cellulitis and abscess of neck - Discharge Dispostion Decision to Admit order: Yes - Referrals - Patient Instructions - Post Discharge Activity
[2018-05-24] MEDS ORDERED: DOCUSATE SODIUM 100 MG CAPSULE (FP) PO PRN (17:30)
--- NOTE | 2018-05-24 17:34 | HP ---
CHIEF COMPLAINT: neck swelling, rash PCP:Dr. Ramirez HISTORY OF PRESENT ILLNESS: Samuel Silva is a 57 yr old F, medical condition DM, HIV, presents to ED with c/ o swelling under her chin, pt reports she may have had bug bites. Denies Fever, chills, c/o itching at site. ER course was notable for: (1)CT scan subcutaneous edema seen bilaterally at the level of the upper anterior neck consistent with history of cellulitis (2)Afebrile (3)Hyperglycemia Recent Travel: PAST MEDICAL HISTORY:DM, HIV PAST SURGICAL HISTORY: Social History: Smoking: current Alcohol:denies Drugs: Livier corley Family History: Allergies ceftriaxone sodium [From Rocephin] Allergy (Severe, Verified 05/24/18 12:29) Rash, hives n/v, dizziness HOME MEDICATIONS: Home Medications Medication Instructions Recorded Multivitamin with Minerals [Icaps 1 each PO DAILY #30 tablet 04/04/17 Plus] Abacavir/Dolutegravir/Lamivudi 1 each PO DAILY #30 tablet 11/22/17 [Triumeq 600-50-300 mg Tablet] Albuterol Sulfate Inhaler - 2 inh PO Q6H #1 inh 11/22/17 [Ventolin HFA Inhaler -] Blood Sugar Diagnostic [Freestyle 1 each MC BID #1 box 11/22/17 Test Strips] Insulin Glargine,Hum.rec.anlog 22 unit SQ HS #1 box 11/22/17 [Toujeo Solostar] Insulin Lispro [Humalog Kwikpen 1 unit SQ TID #1 insuln.pen 11/22/17 U-100] Pen Needle, Diabetic [Pen Needle] 1 each MC ASDIR #1 box 11/22/17 Loratadine [Claritin -] 10 mg PO DAILY #30 tablet 03/08/18 REVIEW OF SYSTEMS CONSTITUTIONAL: Absent: fever, chills, diaphoresis, generalized weakness, malaise, loss of appetite, weight change HEENT: Absent: rhinorrhea, nasal congestion, throat pain, throat swelling, difficulty swallowing, mouth swelling, ear pain, eye pain, visual changes CARDIOVASCULAR: Absent: chest pain, syncope, palpitations, irregular heart rate, lightheadedness , peripheral edema RESPIRATORY: Absent: cough, shortness of breath, dyspnea with exertion, orthopnea, wheezing, stridor, hemoptysis GASTROINTESTINAL: Absent: abdominal pain, abdominal distension, nausea, vomiting, diarrhea, constipation, melena, hematochezia GENITOURINARY: Absent: dysuria, frequency, urgency, hesitancy, hematuria, flank pain, genital pain MUSCULOSKELETAL: Absent: myalgia, arthralgia, joint swelling, back pain, neck pain SKIN: +swelling, itching under chin, Absent: rash, i, pallor HEMATOLOGIC/IMMUNOLOGIC: Absent: easy bleeding, easy bruising, lymphadenopathy, frequent infections ENDOCRINE: Absent: unexplained weight gain, unexplained weight loss, heat intolerance, cold intolerance NEUROLOGIC: Absent: headache, focal weakness or paresthesias, dizziness, unsteady gait, seizure, mental status changes, bladder or bowel incontinence PSYCHIATRIC: Absent: anxiety, depression, suicidal or homicidal ideation, hallucinations. PHYSICAL EXAMINATION Vital Signs - 24 hr 05/24/18 05/24/18 05/24/18 12:27 14:28 16:13 Temperature 98 F Pulse Rate 74 Pulse Rate [ 90 Radial] Respiratory 18 20 Rate Blood Pressure 127/72 Blood Pressure 104/65 [Left Arm] O2 Sat by Pulse 99 98 98 Oximetry (%) GENERAL: Awake, alert, and fully oriented, in no acute distress. HEAD: Normal with no signs of trauma. EYES: Pupils equal, round and reactive to light, extraocular movements intact, sclera anicteric, conjunctiva clear. No lid lag. EARS, NOSE, THROAT: Ears normal, nares patent, oropharynx clear without exudates. Moist mucous membranes. NECK: Normal range of motion, supple without lymphadenopathy, JVD, or masses. LUNGS: Breath sounds equal, clear to auscultation bilaterally. No wheezes, and no crackles. No accessory muscle use. HEART: Regular rate and rhythm, normal S1 and S2 without murmur, rub or gallop. ABDOMEN: Soft, nontender, not distended, normoactive bowel sounds, no guarding, no rebound, no masses. No hepatomegaly or splenomegaly. MUSCULOSKELETAL: Normal range of motion at all joints. No bony deformities or tenderness. No CVA tenderness. UPPER EXTREMITIES: 2+ pulses, warm, well-perfused. No cyanosis. No clubbing. No peripheral edema. LOWER EXTREMITIES: 2+ pulses, warm, well-perfused. No calf tenderness. No peripheral edema. NEUROLOGICAL: Cranial nerves II-XII intact. Normal speech. Normal gait. PSYCHIATRIC: Cooperative. Good eye contact. Appropriate mood and affect. SKIN: redness, swelling anterior part of neck, with 3-4 small circular opening, looking like bug bites, Warm, dry, normal turgor, normal capillary refill. Laboratory Results - last 24 hr 05/24/18 05/24/18 05/24/18 13:01 13:01 13:15 WBC 9.3 RBC 4.40 Hgb 12.7 Hct 36.7 MCV 83.5 MCH 28.9 MCHC 34.6 RDW 13.3 Plt Count 219 MPV 9.3 Absolute Neuts (auto) 4.9 Neutrophils % 53.1 Lymphocytes % 36.1 D Monocytes % 8.1 Eosinophils % 2.4 D Basophils % 0.3 Nucleated RBC % 0 PT with INR 12.60 INR 1.07 Sodium 135 L Potassium 4.3 Chloride 100 Carbon Dioxide 31 Anion Gap 4 L BUN 12 Creatinine 0.8 Creat Clearance w eGFR > 60 Random Glucose 420 H* Calcium 8.9 Total Bilirubin 0.2 AST 12 L ALT 25 Alkaline Phosphatase 107 Total Protein 7.1 Albumin 3.4 ASSESSMENT/PLAN: Samuel Silva is a 57 yr old F, medical condition DM, HIV admitted for Admitting Diagnosis Cellulitis Chronic Problems HIV DM A/P: #Cellulitis of neck -CT scan neck -no discrete abscess noted -received IV vanco -ID consult -blood cx pending -afebrile #HIV -cont with Triumeq 600-50-300 daily #DM, with hyperglycemia -monitor FS -Levemir -ISC Dispo: requires inpatient treatment FEN: Fluids adequate PO intake E: replete electrolytes prn N: diabetic diet DVT prophylaxis: Heparin Sq q12hrs Visit type - Emergency Visit Emergency Visit: Yes Care time: The patient presented to the Emergency Department on the above date and was hospitalized for further evaluation of their emergent condition. - New Patient This patient is new to me today: Yes Date on this admission: 05/24/18 - Critical Care Critical Care patient: No
[2018-05-24 21:13] VITALS: BMI 26.8
[2018-05-24] MEDS ORDERED: INSULIN (LEVEMIR) 100 UNITS/ML UNITS SQ SCH (22:00)
[2018-05-24] MEDS: HEPARIN NA (PORCINE) 5,000 UNITS/ML 1ML VIAL SQ SCH (22:19)
[2018-05-24] MEDS: INSULIN SLIDING SCALE (NOVOLOG) 1 VIAL SQ SCH (22:30)
[2018-05-25] MEDS: INSULIN SLIDING SCALE (NOVOLOG) 1 VIAL SQ SCH ×4 (06:36→21:45)
[2018-05-25 07:04] LABS: BASO % 0.2 % (0-2.0); HEMATOCRIT 39.3 % (32.4-45.2); HEMOGLOBIN 12.6 GM/dL (10.7-15.3); LYMPH % 45.9 % (8-40); MCH 26.9 pg (25.7-33.7); MCHC 32.1 g/dl (32.0-36.0); MEAN CELL VOLUME 83.9 fl (80-96); MEAN PLT VOLUME 9.4 fl (7.5-11.1); MONO % 8.8 % (3.8-10.2); NEUT % 42.1 % (42.8-82.8); PLATELET COUNT 202 K/MM3 (134-434); RBC 4.68 M/mm3 (3.60-5.2); RDW 13.3 % (11.6-15.6); WHITE BLOOD COUNT 6.9 K/mm3 (4.0-10.0)
[2018-05-25 07:23] LABS: ANION GAP 4 MMOL/L (8-16); BLOOD UREA NITROGEN 9 mg/dL (7-18); CALCIUM 8.6 mg/dL (8.5-10.1); CHLORIDE 109 mmol/L (98-107); CO2 28 mmol/L (21-32); CREATININE 0.6 mg/dL (0.55-1.3); GLUCOSE,RANDOM 248 mg/dL (74-106); MAGNESIUM 1.8 mg/dL (1.8-2.4); SODIUM 141 mmol/L (136-145)
[2018-05-25] MEDS: HEPARIN NA (PORCINE) 5,000 UNITS/ML 1ML VIAL SQ SCH ×2 (10:05→21:46)
[2018-05-25] MEDS: LORATADINE 10 MG TABLET PO SCH (10:05)
[2018-05-25] MEDS: MULTIVITAMINS THER W-MINERALS COMBO TABLET (FP) PO SCH (10:05)
--- NOTE | 2018-05-25 14:10 | PN ---
Progress Note (short form) - Note Progress Note: ID CONSULT DICTATED CELLULITIS/ SOFT TISSUE INFECTION ANT NECK DM HIV+ ASYMPTOMATIC CEPHALOSPORIN ALLERGY AWAIT C/S VANCOMYCIN / LEVAQUIN
--- NOTE | 2018-05-25 14:49 | CONS ---
INFECTIOUS DISEASE CONSULTATION DATE OF CONSULTATION: DATE OF DICTATION: 05/25/2018 Patient is a 57-year-old diabetic female, history of HIV positive, asymptomatic, evaluated for soft tissue infection of the neck. Patient reports that 1 day prior to admission, she was bitten by some type of insect on the anterior aspect of the neck. She subsequently developed increased neck swelling, erythema, and pruritus. She had presented to the clinic where she was evaluated and referred to the emergency room for further evaluation. A CAT scan of the neck was obtained and showed soft tissue swelling without evidence of discrete abscess. Patient complains of pruritus at the site. She denies any respiratory compromise. No stridor or wheeze. No fever or chills. She denies prior history of serious soft tissue infection or requiring hospitalization. There is no documented history of MRSA at the microbiology lab here at [facility]. PAST MEDICAL HISTORY: Positive for diabetes mellitus, HIV disease. Her last viral markers from February showed a viral load of 380, a T-cell count of 1293. ALLERGIES: CEFTRIAXONE (rash). MEDICATIONS: Triumeq, multivitamins, Ventolin, Humalog, Claritin. LABORATORY DATA: White count 6.9, hematocrit 39.3, platelets 202. Glucose 420, creatinine 0.6. CAT scan of the neck: No discrete abscess. Bilateral symmetrical prominence of submandibular glands. Nonspecific, mildly enlarged bilateral submental and submandibular lymph nodes. PHYSICAL EXAMINATION: General: She is awake and alert. She is in no acute respiratory distress. Vital Signs: Temperature 98.0; blood pressure 108/56; pulse 72, regular; respirations 20 per minute. HEENT: Sclerae anicteric. Oropharynx negative. Neck: There is soft tissue swelling from below the submental area anteriorly to the base of the neck. There is diffuse swelling. There is no fluctuance or crepitus. There are 5 or 6 superficial, what appear to be puncture wounds without expressible pus. Neck is otherwise supple. Positive submandibular adenopathy. Heart: Sounds S1, S2. Lungs: No stridor or wheeze. Abdomen: Negative. Extremities: Negative for edema. IMPRESSION: 1. Cellulitis/soft tissue infection of the anterior neck. 2. History of insect bite to the soft tissue of the neck. 3. Diabetes mellitus. 4. Human immunodeficiency virus positive, asymptomatic. 5. CEPHALOSPORIN ALLERGY. Await blood cultures. Empiric antibiotic coverage in this patient with CEPHALOSPORIN allergy with vancomycin and Levaquin. Observe for respiratory compromise. Followup viral markers have been obtained in the clinic. Thank you for the kind referral. LYLE KIRK M.D. TAL/[id number]
[2018-05-25] MEDS: VANCOMYCIN 1 GRAM (PRE-DOCKED) 1,000 MG/250 ML BAG IVPB SCH (15:57)
[2018-05-25] MEDS: TRIUMEQ PO SCH (16:10)
[2018-05-25] MEDS: [UNRECOGNIZED DRUG - OTHER] PO SCH (16:10)
[2018-05-25] MEDS ORDERED: INSULIN (LEVEMIR) 100 UNITS/ML UNITS SQ SCH (16:30)
--- NOTE | 2018-05-25 16:30 | PN ---
Physical Exam: SUBJECTIVE: Patient seen and examined at the bedside. OBJECTIVE: Vital Signs Period Temp Pulse Resp BP Sys/Gómez Pulse Ox Last 24 Hr 98.0 F-98.3 F 66-88 20-20 108-124/54-69 96-98 GENERAL: Awake, alert, and fully oriented, in no acute distress. HEAD: Normal with no signs of trauma. EYES: Pupils equal, round and reactive to light, extraocular movements intact, sclera anicteric, conjunctiva clear. No lid lag. EARS, NOSE, THROAT: Ears normal, nares patent, oropharynx clear without exudates. Moist mucous membranes. NECK: Normal range of motion, supple without lymphadenopathy, JVD, or masses. LUNGS: Breath sounds equal, clear to auscultation bilaterally. No wheezes, and no crackles. No accessory muscle use. HEART: Regular rate and rhythm, normal S1 and S2 without murmur, rub or gallop. ABDOMEN: Soft, nontender, not distended, normoactive bowel sounds, no guarding, no rebound, no masses. No hepatomegaly or splenomegaly. MUSCULOSKELETAL: Normal range of motion at all joints. No bony deformities or tenderness. No CVA tenderness. UPPER EXTREMITIES: 2+ pulses, warm, well-perfused. No cyanosis. No clubbing. No peripheral edema. LOWER EXTREMITIES: 2+ pulses, warm, well-perfused. No calf tenderness. No peripheral edema. NEUROLOGICAL: Cranial nerves II-XII intact. Normal speech. Normal gait. PSYCHIATRIC: Cooperative. Good eye contact. Appropriate mood and affect. SKIN: redness, swelling anterior part of neck, with 3-4 small circular opening, looking like bug bites, Warm, dry, normal turgor, normal capillary refill. Laboratory Results - last 24 hr 05/24/18 05/25/18 05/25/18 22:13 05:36 06:00 WBC 6.9 RBC 4.68 Hgb 12.6 Hct 39.3 MCV 83.9 MCH 26.9 MCHC 32.1 RDW 13.3 Plt Count 202 MPV 9.4 Absolute Neuts (auto) 2.9 Neutrophils % 42.1 L D Lymphocytes % 45.9 H D Monocytes % 8.8 Eosinophils % 3.0 Basophils % 0.2 Nucleated RBC % 0 Sodium Potassium Chloride Carbon Dioxide Anion Gap BUN Creatinine Creat Clearance w eGFR POC Glucometer 474 234 Random Glucose Calcium Magnesium 05/25/18 05/25/18 06:00 11:30 WBC RBC Hgb Hct MCV MCH MCHC RDW Plt Count MPV Absolute Neuts (auto) Neutrophils % Lymphocytes % Monocytes % Eosinophils % Basophils % Nucleated RBC % Sodium 141 Potassium 4.0 Chloride 109 H Carbon Dioxide 28 Anion Gap 4 L BUN 9 Creatinine 0.6 Creat Clearance w eGFR > 60 POC Glucometer 181 Random Glucose 248 H Calcium 8.6 Magnesium 1.8 Active Medications Generic Name Dose Route Start Last Admin Trade Name Freq PRN Reason Stop Dose Admin Docusate Sodium 100 mg 05/24/18 17:30 Colace - PO Q12H PRN CONSTIPATION Heparin Sodium (Porcine) 5,000 unit 05/24/18 22:00 05/25/18 10:05 Heparin - SQ Not Given BID ADRIEL Vancomycin HCl 1,000 mg in 250 mls @ 166.667 mls/hr 05/25/18 14:15 05/25/18 15:57 Vancomycin (Pre-Docked) IVPB 166.667 mls/hr Q12H ADRIEL Administration Protocol Levofloxacin 500 mg in 100 mls @ 100 mls/hr 05/25/18 14:15 05/25/18 14:41 Levaquin 500 Mg Premixed Ivpb - IVPB 100 mls/hr DAILY ADRIEL Administration Protocol Insulin Aspart 1 vial 05/24/18 22:00 05/25/18 11:38 Novolog Vial Sliding Scale - SQ 2 units ACHS ADRIEL Administration Protocol Insulin Aspart 16 units 05/25/18 16:29 Novolog SQ 05/25/18 16:30 ONCE ONE Loratadine 10 mg 05/25/18 10:00 05/25/18 10:05 Claritin - PO 10 mg DAILY ADRIEL Administration Multivitamins/Minerals 1 each 05/25/18 10:00 05/25/18 10:05 Theragran-M PO Not Given DAILY ADRIEL Triumeq 600/50/300mg 1 each 05/25/18 15:00 05/25/18 16:10 -Abacavir/ PO Not Given Dolutegravir/ DAILY ADRIEL Lamuvidine-Patient's Own Medication ASSESSMENT/PLAN: Patient is a 57 year old female with a past medical history of diabetes mellitus and HIV. She was admitted for neck cellulitis. ID: Cellulitis of neck, acute CT scan neck, no discrete abscess noted. She received IV vanco in the ED. On Levaquin and vanco. allergies to ceftriaxone noted. vitals stable, afebrile ID following HIV continue with Triumeq 600-50-300 daily Endocrine: Diabetes On Novolog ss, levemir. fen tolerating po monitor electrolytes low salt diet Dispo: requires inpatient treatment DVT prophylaxis: Heparin Sq q12hrs Visit type - Emergency Visit Emergency Visit: Yes ED Registration Date: 05/24/18 Care time: The patient presented to the Emergency Department on the above date and was hospitalized for further evaluation of their emergent condition. - New Patient This patient is new to me today: No - Critical Care Critical Care patient: No - Discharge Referral Referred to [facility] Med P.C.: No
[2018-05-25] MEDS ORDERED: INSULIN (NOVOLOG) ASPART 100 UNITS/ML 10ML VIAL SQ ONE (16:45)
[2018-05-26] MEDS: VANCOMYCIN 1 GRAM (PRE-DOCKED) 1,000 MG/250 ML BAG IVPB SCH ×2 (02:04→13:18)
[2018-05-26] MEDS: INSULIN SLIDING SCALE (NOVOLOG) 1 VIAL SQ SCH ×2 (06:21→11:41)
[2018-05-26 07:21] LABS: BASO % 0.4 % (0-2.0); EOS % 3.4 % (0-4.5); HEMATOCRIT 39.2 % (32.4-45.2); HEMOGLOBIN 12.5 GM/dL (10.7-15.3); LYMPH % 51.2 % (8-40); MCH 26.8 pg (25.7-33.7); MCHC 31.7 g/dl (32.0-36.0); MEAN CELL VOLUME 84.4 fl (80-96); MEAN PLT VOLUME 9.5 fl (7.5-11.1); MONO % 6.9 % (3.8-10.2); NEUT % 38.1 % (42.8-82.8); PLATELET COUNT 198 K/MM3 (134-434); RBC 4.65 M/mm3 (3.60-5.2); RDW 13.3 % (11.6-15.6); WHITE BLOOD COUNT 6.7 K/mm3 (4.0-10.0)
[2018-05-26 07:52] LABS: ALBUMIN 2.8 g/dl (3.4-5.0); ALK PHOS 80 U/L (45-117); ANION GAP 6 MMOL/L (8-16); BILIRUBIN,TOTAL 0.2 mg/dL (0.2-1); BLOOD UREA NITROGEN 10 mg/dL (7-18); CALCIUM 8.7 mg/dL (8.5-10.1); CHLORIDE 106 mmol/L (98-107); CO2 27 mmol/L (21-32); CREATININE 0.6 mg/dL (0.55-1.3); GLUCOSE,RANDOM 261 mg/dL (74-106); POTASSIUM 4.3 mmol/L (3.5-5.1); SGOT/AST 8 U/L (15-37); SGPT/ALT 20 U/L (13-61); SODIUM 139 mmol/L (136-145); TOT PROT 6.3 g/dl (6.4-8.2)
[2018-05-26] MEDS: MULTIVITAMINS THER W-MINERALS COMBO TABLET (FP) PO SCH (10:09)
[2018-05-26] MEDS: HEPARIN NA (PORCINE) 5,000 UNITS/ML 1ML VIAL SQ SCH (10:09)
[2018-05-26] MEDS: LORATADINE 10 MG TABLET PO SCH (10:09)
[2018-05-26] MEDS: TRIUMEQ PO SCH (10:15)
[2018-05-26] MEDS: [UNRECOGNIZED DRUG - OTHER] PO SCH (10:15)
[2018-05-26] MEDS ORDERED: INSULIN (NOVOLOG) ASPART 100 UNITS/ML 10ML VIAL ONE (11:35)
--- NOTE | 2018-05-26 15:03 | PN ---
Progress Note, Physician History of Present Illness: Feeling better Neck swelling improved No breathing difficulties No stridor/ wheeze - Current Medication List Current Medications: Active Medications Docusate Sodium (Colace -) 100 mg PO Q12H PRN PRN Reason: CONSTIPATION Heparin Sodium (Porcine) (Heparin -) 5,000 unit SQ BID [facility] Last Admin: 05/26/18 10:09 Dose: 5,000 unit Vancomycin HCl (Vancomycin (Pre-Docked)) 1,000 mg in 250 mls @ 166.667 mls/hr IVPB Q12H ADRIEL; Protocol Last Admin: 05/26/18 13:18 Dose: 166.667 mls/hr Levofloxacin (Levaquin 500 Mg Premixed Ivpb -) 500 mg in 100 mls @ 100 mls/hr IVPB DAILY [facility]; Protocol Last Admin: 05/26/18 10:09 Dose: 100 mls/hr Insulin Aspart (Novolog Vial Sliding Scale -) 1 vial SQ ACHS [facility]; Protocol Last Admin: 05/26/18 11:41 Dose: 8 units Insulin Detemir (Levemir Vial) 25 units SQ HS [facility] Last Admin: 05/25/18 21:44 Dose: 25 units Loratadine (Claritin -) 10 mg PO DAILY [facility] Last Admin: 05/26/18 10:09 Dose: 10 mg Multivitamins/Minerals (Theragran-M) 1 each PO DAILY [facility] Last Admin: 05/26/18 10:09 Dose: 1 each Triumeq 600/50/300mg -Abacavir/Dolutegravir/Lamuvidine-Patient's Own Medication 1 each PO DAILY [facility] Last Admin: 05/26/18 10:15 Dose: Not Given - Objective Vital Signs: Vital Signs Temperature 98.1 F 05/26/18 06:00 Pulse Rate 69 05/26/18 10:00 Respiratory Rate 18 05/26/18 10:00 Blood Pressure 90/60 05/26/18 10:00 O2 Sat by Pulse Oximetry (%) 96 05/24/18 21:25 Constitutional: Yes: No Distress Eyes: Yes: Conjunctiva Clear Neck: Yes: Other (decreased anterior neck swelling/ erythema; multiple ? imsect bites) Respiratory: Yes: CTA Bilaterally Gastrointestinal: Yes: Normal Bowel Sounds, Soft. No: Tenderness Extremities: Yes: Other Labs: CBC, BMP 05/26/18 06:00 05/26/18 06:00 INR, PTT INR 1.07 (0.83-1.09) 05/24/18 13:01 Assessment/Plan Cellulitis , anterior neck DM HIV + Cephalosporin allergy Substitute clindamycin 300mg po tid x 7d with daily probiotic
[2018-05-26] MEDS ORDERED: CLINDAMYCIN HCL 150 MG CAPSULE (FP) PO SCH (15:15)
[2018-05-26] MEDS ORDERED: LACTOBACILLUS ACIDOPHILUS 1 TABLET PO SCH (15:15)
--- NOTE | 2018-05-26 15:36 | DS ---
Physical Exam: SUBJECTIVE: Patient seen and examined. feels much improved. neck swelling decreased. OBJECTIVE: no airway compromise, no wheezing, no stridor. tolerating room air, speaking in clear sentences. sitting up eating lunch. Vital Signs Period Temp Pulse Resp BP Sys/Gómez Pulse Ox Last 24 Hr 98.1 F-98.6 F 68-91 18-20 90-115/60-70 PHYSICAL EXAM GENERAL: Awake, alert, and fully oriented, in no acute distress. HEAD: Normal with no signs of trauma. EYES: Pupils equal, round and reactive to light, extraocular movements intact, sclera anicteric, conjunctiva clear. No lid lag. EARS, NOSE, THROAT: Ears normal, nares patent, oropharynx clear without exudates. Moist mucous membranes. NECK: Normal range of motion, supple without lymphadenopathy, JVD, or masses. LUNGS: Breath sounds equal, clear to auscultation bilaterally. No wheezes, and no crackles. No accessory muscle use. HEART: Regular rate and rhythm, normal S1 and S2 without murmur, rub or gallop. ABDOMEN: Soft, nontender, not distended, normoactive bowel sounds, no guarding, no rebound, no masses. No hepatomegaly or splenomegaly. MUSCULOSKELETAL: Normal range of motion at all joints. No bony deformities or tenderness. No CVA tenderness. UPPER EXTREMITIES: 2+ pulses, warm, well-perfused. No cyanosis. No clubbing. No peripheral edema. LOWER EXTREMITIES: 2+ pulses, warm, well-perfused. No calf tenderness. No peripheral edema. NEUROLOGICAL: Cranial nerves II-XII intact. Normal speech. Normal gait. PSYCHIATRIC: Cooperative. Good eye contact. Appropriate mood and affect. SKIN: redness, swelling anterior part of neck, with 3-4 small circular opening, looking like bug bites, Warm, dry, normal turgor, normal capillary refill. LABS Laboratory Results - last 24 hr 05/25/18 05/25/18 05/25/18 16:23 19:00 21:42 WBC RBC Hgb Hct MCV MCH MCHC RDW Plt Count MPV Absolute Neuts (auto) Neutrophils % Lymphocytes % Monocytes % Eosinophils % Basophils % Nucleated RBC % Sodium Potassium Chloride Carbon Dioxide Anion Gap BUN Creatinine Creat Clearance w eGFR POC Glucometer 483 296 Random Glucose 256 H Calcium Total Bilirubin AST ALT Alkaline Phosphatase Total Protein Albumin 0105/26/18 05/26/18 05:27 06:00 06:00 WBC 6.7 RBC 4.65 Hgb 12.5 Hct 39.2 MCV 84.4 MCH 26.8 MCHC 31.7 L RDW 13.3 Plt Count 198 MPV 9.5 Absolute Neuts (auto) 2.5 Neutrophils % 38.1 L Lymphocytes % 51.2 H Monocytes % 6.9 Eosinophils % 3.4 Basophils % 0.4 Nucleated RBC % 0 Sodium 139 Potassium 4.3 Chloride 106 Carbon Dioxide 27 Anion Gap 6 L BUN 10 Creatinine 0.6 Creat Clearance w eGFR > 60 POC Glucometer 289 Random Glucose 261 H Calcium 8.7 Total Bilirubin 0.2 AST 8 L ALT 20 Alkaline Phosphatase 80 Total Protein 6.3 L Albumin 2.8 L 05/26/18 11:25 WBC RBC Hgb Hct MCV MCH MCHC RDW Plt Count MPV Absolute Neuts (auto) Neutrophils % Lymphocytes % Monocytes % Eosinophils % Basophils % Nucleated RBC % Sodium Potassium Chloride Carbon Dioxide Anion Gap BUN Creatinine Creat Clearance w eGFR POC Glucometer 322 Random Glucose Calcium Total Bilirubin AST ALT Alkaline Phosphatase Total Protein Albumin HOSPITAL COURSE: Patient is a 57 year old female with a past medical history of diabetes mellitus and HIV. She was admitted for neck cellulitis. ID: Cellulitis of neck, IMPROVED CT scan neck, no discrete abscess noted. She received IV vanco in the ED and continued treatment with Levaquin and vanco. allergies to ceftriaxone noted. vitals stable, afebrile. She has improved and will be sent home with Clindamycin 300mg tid x 7 days. ID follow up outpatient. HIV continue with Triumeq 600-50-300 daily Endocrine: Diabetes. continue home medications Discharge home with outpatient follow up. Date of Admission:05/24/18 Date of Discharge: 05/26/18 Minutes to complete discharge: 60 Discharge Summary Reason For Visit: CELLULITIS Current Active Problems Cellulitis and abscess of neck (Acute) HIV antibody positive (Acute) Neck mass (Acute) Insulin dependent diabetes mellitus (Chronic) Condition: Improved - Instructions Diet, Activity, Other Instructions: Mrs Silva: You were admitted with anterior neck cellulitis. We treated you with IV antibiotics during your hospital stay and now will be transitioning you to oral antibiotics. Here are our recommendations: Clindamycin 300mg take 3 times per day at 8am, 3pm and 8pm Take Bacid (pro biotic) daily while on the antibiotics. Please return to the ED with any new or worsening symptoms. Please call me with any questions that you may have. [facility]es [facility] [phone] Referrals: Attila Ritter MD [Staff Physician] - Disposition: HOME - Home Medications Comprehensive Discharge Medication List: Ambulatory Orders Multivitamin with Minerals [Icaps Plus] 1 each PO DAILY #30 tablet 04/04/17 Abacavir/Dolutegravir/Lamivudi [Triumeq 600-50-300 mg Tablet] 1 each PO DAILY # 30 tablet 11/22/17 Albuterol Sulfate Inhaler - [Ventolin HFA Inhaler -] 2 inh PO Q6H #1 inh Blood Sugar Diagnostic [Freestyle Test Strips] 1 each MC BID #1 box 11/22/17 Insulin Glargine,Hum.rec.anlog [Toujeo Solostar] 22 unit SQ HS #1 box 11/22/17 Insulin Lispro [Humalog Kwikpen U-100] 1 unit SQ TID #1 insuln.pen 11/22/17 Pen Needle, Diabetic [Pen Needle] 1 each MC ASDIR #1 box 11/22/17 Loratadine [Claritin -] 10 mg PO DAILY #30 tablet 03/08/18 Clindamycin [Cleocin -] 300 mg PO TID #21 capsule 05/26/18 Lactobacillus Acidophilus [Bacid -] 1 tab PO DAILY #10 tab 05/26/18 This patient is new to me today: No Emergency Visit: Yes ED Registration Date: 05/24/18 Care time: The patient presented to the Emergency Department on the above date and was hospitalized for further evaluation of their emergent condition. Critical Care patient: No - Discharge Referral Referred to [facility] No
[2018-05-26 15:37] VITALS: BP 108/64; PULSE 72; TEMP 98.6
== END 2018-05-26 16:59 | disposition home or self-care (01) | DRG 383 ==
LOC: JER 12:21 → JERFT 12:21 → JERBED 16:43 → J6S 20:11
PROVIDERS: ADMIT Internal Medicine; ATTEND Nurse Practitioner Family
DX: L03.221 Cellulitis of neck (principal); E11.9 Type 2 diabetes mellitus without complications; Z21 Asymptomatic human immunodeficiency virus [HIV] infection status; Z88.1 Allergy status to other antibiotic agents
CPT/HCPCS: 36415; 70491-TC; 80048; 80053; 82947; 82962; 83735; 85025; 85610; 87040; 87070; 87205; 99284-25; J1644; J7030

== ENCOUNTER 2019-05-09 20:32 | Emergency (ER) | payer OTHER ==
[2019-05-09 20:46] VITALS: BMI 24.7
[2019-05-09] MEDS ORDERED: ACETAMINOPHEN 1000 MG/100 ML VIAL (NON FORMULARY) IVPB ONE (21:51)
[2019-05-09] MEDS ORDERED: LACTATED RINGERS SOLUTION 1000 ML INFUS.BAG IV ONE (21:51)
[2019-05-09] MEDS ORDERED: ACETAMINOPHEN INJECTION 100 ML IVPB ONE (21:55)
--- NOTE | 2019-05-09 22:04 | PDOC ---
History of Present Illness - General Chief Complaint: Vomiting/Diarrhea Stated Complaint: ABD PAIN Time Seen by Provider: 05/09/19 21:36 History Source: Patient Exam Limitations: No Limitations, Language Barrier - History of Present Illness Initial Comments: 05/09/19 23:13 58y F with PMH of HIV (on HAART), IDDM presenting to ED for diarrhea and abdominal discomfort x 2days. She recently came back from the 3 days ago and the diarrhea started 2 days ago. She describes the diarrhea as liquid, going multiple times per day. She says she is able to eat and drink but it gets flushed right out. Denies fever, chills, chest pain, sob, rash, back pain. She does not recall eating any uncooked meats or questionable food. Of note, patient states [place] and has not had her medications for 5 days. PMD: James PMH: see hpi PSH: Meds: insulin, HAART Allergies: rocephin Past History - Past Medical History Allergies/Adverse Reactions: Allergies Allergy/AdvReac Type Severity Reaction Status Date / Time ceftriaxone sodium Allergy Severe Rash, hives Verified 05/24/18 12:29 [From Rocephin] Home Medications: Ambulatory Orders Multivitamin with Minerals [Icaps Plus] 1 each PO DAILY #30 tablet 04/04/17 Blood Sugar Diagnostic [Freestyle Test Strips] 1 each MC BID #1 box 11/22/17 Alcohol Antiseptic Pads [Alcohol Prep Pads] 1 each TP ASDIR #1 box 01/02/19 Bictegrav/Emtricit/Tenofov Ala [Biktarvy 50-200-25 mg Tablet] 1 tab PO DAILY # 30 tablet 01/02/19 Insulin Glargine,Hum.rec.anlog [Lantus Solostar PEN -] 22 units SQ HS #1 pen Insulin Lispro [Humalog Kwikpen U-100] 1 unit SQ TID #1 box 01/02/19 Lancets/Blood Glucose Strips [Fora [id number] Strp-Lnct] 1 each MC ASDIR # 1 box 01/02/19 Loratadine [Claritin -] 10 mg PO DAILY #30 tablet 01/02/19 Pen Needle, Diabetic, Safety [Dropsafe Pen Needle] 1 each MC ASDIR #1 box Cholecalciferol (Vitamin D3) [D3-50] 1 cap PO WEEKLY #4 capsule 04/23/19 Ibuprofen 1 tab PO DAILY #15 tablet MDD 1 04/23/19 Bictegrav/Emtricit/Tenofov Ala [Biktarvy 50-200-25 mg Tablet] 1 each PO DAILY # 14 tablet 05/09/19 levoFLOXacin [Levaquin -] 500 mg PO DAILY #3 tablet 05/09/19 Anemia: No Asthma: Yes ( A CHILD) Cancer: No Cardiac Disorders: No CVA: No COPD: No CHF: No Dementia: No Diabetes: Yes Dialysis: Yes GI Disorders: No Disorders: No HTN: No Hypercholesterolemia: Yes Liver Disease: No Psychiatric Problems: No Seizures: No Thyroid Disease: No - Reproductive History Cervical CA: No Dysfunctional Uterine Bleeding: No Ectopic : No Endometrial CA: No Polycystic Ovaries: No Tubal Ligation: No - Psycho Social/Smoking Cessation Hx Smoking Status: No Smoking History: Never smoked Have you smoked in the past 12 months: Yes Number of Cigarettes Smoked Daily: 2 If you are a former smoker, when did you quit?: 3 Cigars Per Day: 0 'Breaking Loose' booklet given: 09/27/13 Hx Alcohol Use: No Drug/Substance Use Hx: No Substance Use Type: None Hx Substance Use Treatment: No (N/A) Review of Systems - Review of Systems Constitutional: No: Symptoms Reported HEENTM: No: Symptoms Reported Respiratory: No: Symptoms reported Cardiac (ROS): No: Symptoms Reported ABD/GI: Yes: See HPI : No: Symptoms Reported Musculoskeletal: No: Symptoms Reported Integumentary: No: Symptoms Reported Neurological: No: Symptoms reported *Physical Exam - Vital Signs Last Vital Signs Temp Pulse Resp BP Pulse Ox 98.4 F 115 H 20 131/88 98 05/09/19 20:44 05/09/19 20:44 05/09/19 20:44 05/09/19 20:44 05/09/19 20:44 - Physical Exam General Appearance: Yes: Nourished, Appropriately Dressed, Mild Distress HEENT: positive: EOMI, RAFIA, Normal ENT Inspection. negative: Thrush Neck: positive: Trachea midline, Supple Respiratory/Chest: positive: Lungs Clear, Normal Breath Sounds. negative: Crackles, Rales, Rhonchi, Stridor, Wheezing Cardiovascular: positive: Regular Rhythm, S1, S2, Tachycardia. negative: Edema , JVD, Murmur Vascular Pulses: Dorsalis-Pedis (R): 2+, Doralis-Pedis (L): 2+ Gastrointestinal/Abdominal: positive: Normal Bowel Sounds, Soft. negative: Tender, Distended, Guarding, Hernia, Mass Musculoskeletal: negative: CVA Tenderness Extremity: positive: Normal Capillary Refill. negative: Swelling, Calf Tenderness, Erythema Integumentary: positive: Normal Color, Dry, Warm. negative: Rash Neurologic: positive: school patrol II-XII NML intact, Fully Oriented, Alert, Normal Mood/ Affect, Normal Response, Motor Strength 09/17 ED Treatment Course - LABORATORY CBC & Chemistry Diagram: 05/09/19 22:10 05/09/19 22:10 Medical Decision Making - Medical Decision Making 05/09/19 23:17 58y F with HIV and DM presenting for diarrhea. vitals: tachycardia, afebrile, normotensive ddx includes but not limited to traveller's diarrhea, infectious diarrhea, malabsorption recent CD4 counts are high (february 2019) with detectable viral load. Given CD4 count, low suspicion for cryptococcal diarrhea. will obtain basic labs -ivf, jv flower cipro changed to levaquin by pharmacy because of stocking issues. patient feeling better. waiting for stool sample however patient can take it home and provide sample to pmd. will send rx for levaquin x3 days and 2week supply of HAART. advised patient to f/u with pmd next week. patient verbalized understanding. will repeat vitals. 05/10/19 00:23 vitals wnl. patient feeling better, will dc home. given return precautions Discharge - Discharge Information Problems reviewed: Yes Clinical Impression/Diagnosis: Diarrhea, travelers' Condition: Improved Disposition: HOME - Admission No - Additional Discharge Information Prescriptions: Bictegrav/Emtricit/Tenofov Ala [Biktarvy 50-200-25 mg Tablet] 1 each PO DAILY # 14 tablet levoFLOXacin [Levaquin -] 500 mg PO DAILY #3 tablet - Follow up/Referral - Patient Discharge Instructions Patient Printed Discharge Instructions: DI for Diarrhea and Traveler's Diarrhea -- Adult Additional Instructions: You were seen in the emergency room today for diarrhea. This is likely Traveller 's Diarrhea. Keep yourself well hydrated. A prescription for an antibiotic was sent to your pharmacy. Take one tablet daily for 3 days. A prescription for your HAART medications was also sent to your pharmacy. This is a 2 week supply. Please make an appointment with your primary care provider next week. If you did not provide a stool sample here, please take the container home and provide a sample to give to your primary provider. Come back to the emergency room if there is blood in the stool, if you are unable to eat or drink anything, if you have worsening abdominal pain or if any new or concerning symptom develops. - Post Discharge Activity
[2019-05-09] MEDS ORDERED: CIPROFLOXACIN 500 MG TABLET (RESTRICTED TO ID) PO ONE (22:17)
[2019-05-09 22:28] LABS: BASO % 0.8 % (0-2.0); EOS % 0.6 % (0-4.5); HEMATOCRIT 44.4 % (32.4-45.2); HEMOGLOBIN 14.6 GM/dL (10.7-15.3); LYMPH % 21.1 % (8-40); MCH 27.8 pg (25.7-33.7); MCHC 32.9 g/dl (32.0-36.0); MEAN CELL VOLUME 84.7 fl (80-96); MEAN PLT VOLUME 10.3 fl (7.5-11.1); MONO % 9.1 % (3.8-10.2); NEUT % 68.4 % (42.8-82.8); PLATELET COUNT 220 K/MM3 (134-434); RBC 5.24 M/mm3 (3.60-5.2); RDW 13.1 % (11.6-15.6)
[2019-05-09] MEDS ORDERED: levETIRAcetam 500 MG TABLET (FP) PO ONE (22:40)
[2019-05-09 22:47] LABS: ALBUMIN 3.6 g/dl (3.4-5.0); BILIRUBIN,TOTAL 0.4 mg/dL (0.2-1); CALCIUM 8.8 mg/dL (8.5-10.1); CREATININE 0.7 mg/dL (0.55-1.3); POTASSIUM 4.2 mmol/L (3.5-5.1); TOT PROT 7.2 g/dl (6.4-8.2)
--- NOTE | 2019-05-09 23:15 | PDOC ---
Documentation entered by Dea Martinez SCRIBE, acting as scribe for Chet Jhaveri MD. Chet Jhaveri MD: This documentation has been prepared by the Juan gooden Adrianna, SCRIBE, under my direction and personally reviewed by me in its entirety. I confirm that the documentation accurately reflects all work, treatment, procedures, and medical decision making performed by me. Attending Attestation - Resident Resident Name: Jamila Snyder - ED Attending Attestation I have performed the following: I have examined & evaluated the patient, The case was reviewed & discussed with the resident, I agree w/resident's findings & plan, Exceptions are as noted - HPI HPI: 58 year old female, with a significant PMH of DM, HLD, HIV (on HAART), presents with diarrhea and abdominal pain for 2 days. Patient notes she flew home from the 2 days ago, and consequently developed loose,watery stool. She endorses associated diffuse abdominal cramping and nausea. Allergies: Ceftriaxone Surgical History: None reported Social History: Denies EtOH, tobacco, or illicit drug use - Physicial Exam PE: 05/09/19 23:14 Patient is awake and alert, well-nourished, mildly tachycardic, no distress Normocephalic, atraumatic PERRLA, EOMI, no scleral icterus mm-dry Neck is supple cta rrr, tachycardic abdomen is soft, nontender, nondistended - Medical Decision Making 05/09/19 23:15 58-year-old female with multiple comorbidities, history of HIV on [place], CD4 count of 1600 presents with signs and symptoms of traveler's diarrhea. Patient is mildly tachycardic with dry mucous membranes. Will hydrate. Will administer p.o. challenge. Will address electrolyte abnormalities. Patient tolerates p.o. and vital signs normalized, will discharge with Cipro with outpatient follow-up.
[2019-05-09 23:19] VITALS: BP 125/76; PULSE 82; TEMP 98.2
== END 2019-05-09 23:39 | disposition home or self-care (01) ==
LOC: JER 20:32
PROC: 3E033NZ Introduction of Analgesics, Hypnotics, Sedatives into Peripheral Vein, Percutaneous Approach (ICD-10-PCS; principal; 2019-05-09)
DX: A09 Infectious gastroenteritis and colitis, unspecified (principal); E11.9 Type 2 diabetes mellitus without complications; Z79.4 Long term (current) use of insulin; Z21 Asymptomatic human immunodeficiency virus [HIV] infection status; Z88.1 Allergy status to other antibiotic agents
CPT/HCPCS: 36415; 80053; 85025; 99282-25; J0131

== ENCOUNTER 2022-02-03 10:12 | Emergency (ER) | payer OTHER ==
[2022-02-03 10:44] VITALS: BMI 25.6
[2022-02-03] MEDS ORDERED: morphine CARPU-JECT 4 MG/1 ML DISP.SYRIN IVPUSH ONE (11:46)
[2022-02-03] MEDS ORDERED: SODIUM CHLORIDE 1,000 ML IV STA (11:46)
[2022-02-03] MEDS ORDERED: morphine SULFATE 4 MG/ML VIAL ONE (12:09)
[2022-02-03 12:19] LABS: BASO % 0.4 % (0-2.0); EOS % 0.4 % (0-4.5); HEMATOCRIT 40.4 % (32.4-45.2); HEMOGLOBIN 13.6 GM/dL (10.7-15.3); LYMPH % 31.6 % (8-40); MCH 28.7 pg (25.7-33.7); MCHC 33.7 g/dl (32.0-36.0); MEAN CELL VOLUME 85.2 fl (80-96); MEAN PLT VOLUME 8.5 fl (7.5-11.1); MONO % 9.3 % (3.8-10.2); NEUT % 58.3 % (42.8-82.8); PLATELET COUNT 345 10^3/uL (134-434); RBC 4.74 M/mm3 (3.60-5.2); RDW 12.9 % (11.6-15.6); WHITE BLOOD COUNT 9.9 K/mm3 (4.0-10.0)
[2022-02-03 12:35] LABS: INR 1.15 (0.83-1.09); PROTHROMBIN TIME (PATIENT) 13.2 SEC (9.7-13.0)
[2022-02-03 12:43] LABS: CALCIUM 9.8 mg/dL (8.5-10.1)
[2022-02-03 12:44] LABS: ALBUMIN 3.4 g/dl (3.4-5.0); BLOOD UREA NITROGEN 7.5 mg/dL (7-18)
[2022-02-03 12:47] LABS: CREATININE 0.7 mg/dL (0.55-1.3)
[2022-02-03 12:48] LABS: BILIRUBIN,TOTAL 0.3 mg/dL (0.2-1); TOT PROT 7.5 g/dl (6.4-8.2)
[2022-02-03 13:47] LABS: EPI CELLS 4 /uL (0-25.1); HYALINE CASTS 1 /uL (0-3.1); PH,URINE 6.5 (5.0-8.0); URINE APPEARANCE CLOUDY; URINE BILIRUBIN NEGATIVE (NEGATIVE); URINE COLOR YELLOW; URINE GLUCOSE (UA) 3+ (NEGATIVE); URINE KETONE NEGATIVE (NEGATIVE); URINE LEUK ESTERASE 3+ (NEGATIVE); URINE NITRITE POSITIVE (NEGATIVE); URINE PROTEIN 1+ (NEGATIVE); URINE RBC 25 /uL (0-23.9); URINE UROBILINOGEN 0.2 mg/dL (0.2-1.0); URINE WBC 1255 /uL (0-25.8)
[2022-02-03 14:27] LABS: URINE BACTERIA 562 /uL (0-1359)
[2022-02-03 17:41] VITALS: BP 115/85; PULSE 80; RESP 20; TEMP 99
== END 2022-02-03 17:30 | disposition home or self-care (01) ==
LOC: JER 10:12
PROC: 3E033GC Introduction of Other Therapeutic Substance into Peripheral Vein, Percutaneous Approach (ICD-10-PCS; principal; 2022-02-03)
DX: N39.0 Urinary tract infection, site not specified (principal); R10.32 Left lower quadrant pain
CPT/HCPCS: 36415; 71045-TC-FY; 74177-TC; 80053; 81003; 83690; 85025; 85610; 85651; 86140; 87086; 87186; 93005; 93010; 99285-25; Q9967

== ENCOUNTER 2022-11-05 16:04 | Emergency (ER) | payer OTHER ==
[2022-11-05] MEDS ORDERED: ADENOSINE 6 MG/2 ML VIAL IVPUSH ONE ×4 (16:17→17:19)
[2022-11-05 16:31] VITALS: BMI 24.7
[2022-11-05 17:34] LABS: BASO % 0.4 % (0-2.0); EOS % 0.7 % (0-4.5); HEMOGLOBIN 12.6 GM/dL (10.7-15.3); LYMPH % 46.2 % (8-40); MCH 27.5 pg (25.7-33.7); MCHC 32.3 g/dl (32.0-36.0); MEAN CELL VOLUME 84.9 fl (80-96); MONO % 6.1 % (3.8-10.2); NEUT % 46.6 % (42.8-82.8); PLATELET COUNT 293 10^3/uL (134-434); RBC 4.59 M/mm3 (3.60-5.2); RDW 13.4 % (11.6-15.6); WHITE BLOOD COUNT 10.5 K/mm3 (4.0-10.0)
[2022-11-05 17:55] VITALS: RESP 18
[2022-11-05 17:55] LABS: CALCIUM 9.3 mg/dL (8.5-10.1)
[2022-11-05 17:56] LABS: ALBUMIN 3.8 g/dl (3.4-5.0); BLOOD UREA NITROGEN 7.4 mg/dL (7-18); MAGNESIUM 1.7 mg/dL (1.8-2.4)
[2022-11-05] MEDS ORDERED: MAGNESIUM SULF 50% (8.12 MEQ/2 ML-1 GM VIAL) IVPB ONE (17:57)
[2022-11-05 17:59] LABS: CREATININE 0.9 mg/dL (0.55-1.3)
[2022-11-05 18:00] LABS: BILIRUBIN,TOTAL 0.2 mg/dL (0.2-1)
[2022-11-05 18:01] LABS: TOT PROT 7.1 g/dl (6.4-8.2)
[2022-11-05] MEDS ORDERED: MAGNESIUM 1GM/D5W - 1 GM/100 ML IVPB IVPB ONE (18:01)
[2022-11-05 19:46] LABS: EPI CELLS 4 /uL (0-25.1); HYALINE CASTS 0 /uL (0-3.1); URINE APPEARANCE CLEAR; URINE BACTERIA 3415 /uL (0-1359); URINE BILIRUBIN NEGATIVE (NEGATIVE); URINE COLOR YELLOW; URINE GLUCOSE (UA) 3+ (NEGATIVE); URINE KETONE NEGATIVE (NEGATIVE); URINE LEUK ESTERASE 2+ (NEGATIVE); URINE NITRITE NEGATIVE (NEGATIVE); URINE PROTEIN TRACE (NEGATIVE); URINE RBC 8 /uL (0-23.9); URINE UROBILINOGEN 0.2 mg/dL (0.2-1.0); URINE WBC 379 /uL (0-25.8)
[2022-11-05 20:17] VITALS: BP 110/69; PULSE 78; TEMP 98.1
== END 2022-11-05 20:27 | disposition home or self-care (01) ==
LOC: JER 16:04
PROC: 3E033GC Introduction of Other Therapeutic Substance into Peripheral Vein, Percutaneous Approach (ICD-10-PCS; principal; 2022-11-05)
PROC: 3E033GC Introduction of Other Therapeutic Substance into Peripheral Vein, Percutaneous Approach (ICD-10-PCS; 2022-11-05)
DX: I47.1 Supraventricular tachycardia (principal); N30.00 Acute cystitis without hematuria; R42 Dizziness and giddiness; R00.2 Palpitations
CPT/HCPCS: 36415; 71045-TC-FY; 80053; 81003; 83735; 84484; 85025; 87086; 87186; 93005; 93010; 99285-25

== ENCOUNTER 2022-11-23 11:45 | Emergency (ER) | payer OTHER ==
[2022-11-23 11:58] VITALS: BP 124/84; PULSE 94; RESP 16; TEMP 99.1; BMI 24.8
[2022-11-23] MEDS ORDERED: KETOROLAC TROMETHAMINE 30 MG/1 ML VIAL IM ONE (12:52)
[2022-11-23] MEDS ORDERED: METHOCARBAMOL 500 MG TABLET PO ONE (13:25)
[2022-11-23] MEDS ORDERED: LIDOCAINE 5% TOPICAL PATCH TP ONE (13:25)
[2022-11-23] MEDS ORDERED: KETOROLAC TROMETHAMINE 30 MG/1 ML VIAL ONE (13:31)
[2022-11-23] MEDS ORDERED: METHOCARBAMOL 500 MG TABLET ONE (14:10)
[2022-11-23] MEDS ORDERED: LIDOCAINE 5% TOPICAL PATCH ONE (14:10)
[2022-11-23 14:35] LABS: BASO % 0.5 % (0-2.0); EOS % 1.4 % (0-4.5); HEMATOCRIT 40.5 % (32.4-45.2); HEMOGLOBIN 13.1 GM/dL (10.7-15.3); LYMPH % 42.1 % (8-40); MCH 27.9 pg (25.7-33.7); MCHC 32.3 g/dl (32.0-36.0); MEAN CELL VOLUME 86.2 fl (80-96); MEAN PLT VOLUME 9.6 fl (7.5-11.1); MONO % 8.8 % (3.8-10.2); NEUT % 47.2 % (42.8-82.8); PLATELET COUNT 281 10^3/uL (134-434); RBC 4.69 M/mm3 (3.60-5.2); RDW 13.3 % (11.6-15.6); WHITE BLOOD COUNT 8.1 K/mm3 (4.0-10.0)
[2022-11-23 15:03] LABS: POTASSIUM 4.7 mmol/L (3.5-5.1)
[2022-11-23 15:05] LABS: CALCIUM 9.5 mg/dL (8.5-10.1)
[2022-11-23 15:06] LABS: ALBUMIN 3.4 g/dl (3.4-5.0); BLOOD UREA NITROGEN 10.9 mg/dL (7-18)
[2022-11-23 15:09] LABS: CREATININE 0.8 mg/dL (0.55-1.3)
[2022-11-23 15:11] LABS: BILIRUBIN,TOTAL 0.2 mg/dL (0.2-1)
[2022-11-23 15:39] LABS: EPI CELLS 8 /uL (0-25.1); HYALINE CASTS 0 /uL (0-3.1); URINE APPEARANCE TURBID; URINE BACTERIA >9,000 /uL (0-1359); URINE BILIRUBIN NEGATIVE (NEGATIVE); URINE COLOR YELLOW; URINE GLUCOSE (UA) NEGATIVE (NEGATIVE); URINE KETONE NEGATIVE (NEGATIVE); URINE LEUK ESTERASE 3+ (NEGATIVE); URINE NITRITE NEGATIVE (NEGATIVE); URINE PROTEIN TRACE (NEGATIVE); URINE RBC 29 /uL (0-23.9); URINE UROBILINOGEN 0.2 mg/dL (0.2-1.0); URINE WBC 2426 /uL (0-25.8)
[2022-11-23] MEDS ORDERED: SULFAMETHOXAZOLE/TRIMETHOPRIM 800MG/160MG D.S. TABLET PO ONE (16:01)
[2022-11-23] MEDS ORDERED: SULFAMETHOXAZOLE/TRIMETHOPRIM 800MG/160MG D.S. TABLET ONE (16:31)
[2022-11-23] MEDS ORDERED: LIDOCAINE PATCH REMOVAL MC ONE (22:00)
== END 2022-11-23 17:09 | disposition home or self-care (01) ==
LOC: JER 11:45
PROC: 3E0233Z Introduction of Anti-inflammatory into Muscle, Percutaneous Approach (ICD-10-PCS; principal; 2022-11-23)
DX: M25.552 Pain in left hip (principal); M54.50 Low back pain, unspecified; R30.0 Dysuria; R50.9 Fever, unspecified; R10.32 Left lower quadrant pain; M54.16 Radiculopathy, lumbar region; N12 Tubulo-interstitial nephritis, not specified as acute or chronic; G89.29 Other chronic pain; R00.2 Palpitations
CPT/HCPCS: 36415; 80053; 81003; 85025; 87086; 87186; 93005; 93010; 99284-25

== ENCOUNTER 2023-08-05 15:41 | Inpatient (IN) | payer OTHER ==
[2023-08-05 15:48] VITALS: BMI 25.4
[2023-08-05] MEDS ORDERED: ONDANSETRON 4 MG/2 ML VIAL ONE ×2 (17:28→17:34)
[2023-08-05 17:35] LABS: BASO % 0.3 % (0-2.0); EOS % 0.1 % (0-4.5); HEMATOCRIT 42.4 % (32.4-45.2); LYMPH % 7.3 % (8-40); MCH 28.2 pg (25.7-33.7); MCHC 33.1 g/dl (32.0-36.0); MEAN CELL VOLUME 85.3 fl (80-96); MEAN PLT VOLUME 9.6 fl (7.5-11.1); MONO % 3.6 % (3.8-10.2); NEUT % 88.7 % (42.8-82.8); PLATELET COUNT 265 10^3/uL (134-434); RBC 4.98 M/mm3 (3.60-5.2); RDW 12.9 % (11.6-15.6); WHITE BLOOD COUNT 12.8 K/mm3 (4.0-10.0)
[2023-08-05] MEDS: SODIUM CHLORIDE 0.9% 500 ML INFUS.BAG IV ONE (17:53)
[2023-08-05] MEDS: ACETAMINOPHEN 1000 MG/100 ML BAG IVPB ONE (17:53)
[2023-08-05] MEDS: ONDANSETRON 4 MG/2 ML VIAL IVPUSH ONE (17:54)
[2023-08-05 17:58] LABS: POTASSIUM 4.6 mmol/L (3.5-5.1)
[2023-08-05 18:00] LABS: ALBUMIN 3.8 g/dl (3.4-5.0); BLOOD UREA NITROGEN 13.4 mg/dL (7-18); CALCIUM 9.6 mg/dL (8.5-10.1); MAGNESIUM 1.6 mg/dL (1.8-2.4)
[2023-08-05 18:03] LABS: CREATININE 0.9 mg/dL (0.55-1.3)
[2023-08-05 18:05] LABS: BILIRUBIN,TOTAL 0.5 mg/dL (0.2-1); TOT PROT 7.6 g/dl (6.4-8.2)
[2023-08-05] MEDS ORDERED: MAGNESIUM 1GM/D5W - 1 GM/100 ML IVPB IVPB ONE (18:35)
[2023-08-05] MEDS: MAGNESIUM 1GM/D5W - 1 GM/100 ML IVPB IVPB ONE (18:48)
[2023-08-05 19:03] LABS: EPI CELLS 8 /uL (0-25.1); HYALINE CASTS 1 /uL (0-3.1); PH,URINE 5.5 (5.0-8.0); URINE APPEARANCE CLOUDY; URINE BACTERIA >9,000 /uL (0-1359); URINE BILIRUBIN NEGATIVE (NEGATIVE); URINE COLOR YELLOW; URINE GLUCOSE (UA) 3+ (NEGATIVE); URINE KETONE NEGATIVE (NEGATIVE); URINE LEUK ESTERASE 2+ (NEGATIVE); URINE NITRITE NEGATIVE (NEGATIVE); URINE PROTEIN 2+ (NEGATIVE); URINE RBC 16 /uL (0-23.9); URINE UROBILINOGEN 0.2 mg/dL (0.2-1.0); URINE WBC 862 /uL (0-25.8)
[2023-08-06] MEDS: ACETAMINOPHEN 1000 MG/100 ML BAG IVPB PRN (01:39)
[2023-08-06] MEDS: INSULIN ASPART SLIDING SCALE (NOVOLOG) 1 VIAL SQ SCH (07:17)
[2023-08-06] MEDS: ENOXAPARIN NA (PORCINE) 40 MG/0.4 ML DISP.SYRIN SQ SCH (09:27)
[2023-08-06] MEDS: CHOLECALCIFEROL (VIT D3) 1,000 UNIT (25 MCG) TABLET PO SCH (09:27)
[2023-08-06] MEDS: valACYclovir HCL 500 MG TABLET (FP) PO SCH (09:27)
[2023-08-06] MEDS: CALCIUM 500MG/VIT-D 200 UNITS COMBO TABLET (FP) PO SCH (09:27)
[2023-08-06] MEDS: SULFAMETHOXAZOLE/TRIMETHOPRIM 800MG/160MG D.S. TABLET PO SCH (09:27)
[2023-08-06] MEDS: ERTAPENEM SODIUM 1 GM in SODIUM CHLORIDE 50 ML IVPB SCH (09:28)
[2023-08-06] MEDS: EMTRICITABINE/TENOFOV ALAFENAM (DESCOVY) TABLET PO SCH (09:37)
[2023-08-06] MEDS: LISINOPRIL 5 MG TABLET PO SCH (09:38)
[2023-08-06] MEDS: DOLUTEGRAVIR SODIUM 50 MG TABLET (NON-FORMULARY) PO SCH (09:41)
[2023-08-06 09:55] LABS: HEMATOCRIT 39.2 % (32.4-45.2); HEMOGLOBIN 12.6 GM/dL (10.7-15.3); MCH 27.9 pg (25.7-33.7); MCHC 32.2 g/dl (32.0-36.0); MEAN CELL VOLUME 86.8 fl (80-96); MEAN PLT VOLUME 9.1 fl (7.5-11.1); PLATELET COUNT 216 10^3/uL (134-434); RBC 4.52 M/mm3 (3.60-5.2); RDW 12.8 % (11.6-15.6); WHITE BLOOD COUNT 5.4 K/mm3 (4.0-10.0)
[2023-08-06 10:12] LABS: BLOOD UREA NITROGEN 8.5 mg/dL (7-18); MAGNESIUM 1.8 mg/dL (1.8-2.4)
[2023-08-06 10:15] LABS: CREATININE 0.7 mg/dL (0.55-1.3)
[2023-08-06 10:17] LABS: BILIRUBIN,TOTAL 0.4 mg/dL (0.2-1); TOT PROT 6.5 g/dl (6.4-8.2)
[2023-08-06 10:20] LABS: CALCIUM 9.1 mg/dL (8.5-10.1)
[2023-08-06] MEDS ORDERED: INSULIN (NOVOLOG) ASPART 100 UNITS/ML 10ML VIAL ONE ×3 (11:46→21:11)
[2023-08-06] MEDS: INSULIN (LEVEMIR) 100 UNITS/ML UNITS SQ SCH (22:55)
[2023-08-07 09:03] LABS: BASO % 0.3 % (0-2.0); EOS % 1.7 % (0-4.5); HEMATOCRIT 37.9 % (32.4-45.2); HEMOGLOBIN 12.8 GM/dL (10.7-15.3); LYMPH % 49.6 % (8-40); MCH 28.8 pg (25.7-33.7); MCHC 33.7 g/dl (32.0-36.0); MEAN CELL VOLUME 85.4 fl (80-96); MEAN PLT VOLUME 9.5 fl (7.5-11.1); MONO % 11.5 % (3.8-10.2); NEUT % 36.9 % (42.8-82.8); PLATELET COUNT 220 10^3/uL (134-434); RBC 4.44 M/mm3 (3.60-5.2); RDW 12.9 % (11.6-15.6); WHITE BLOOD COUNT 6.7 K/mm3 (4.0-10.0)
[2023-08-07 09:21] LABS: POTASSIUM 4.4 mmol/L (3.5-5.1)
[2023-08-07 09:25] LABS: BLOOD UREA NITROGEN 8.7 mg/dL (7-18); CALCIUM 9.1 mg/dL (8.5-10.1)
[2023-08-07 09:26] LABS: CREATININE 0.7 mg/dL (0.55-1.3)
[2023-08-07 14:05] VITALS: RESP 18
[2023-08-07] MEDS ORDERED: INSULIN (NOVOLOG) ASPART 100 UNITS/ML 10ML VIAL ONE ×2 (20:08→21:07)
[2023-08-07 21:16] VITALS: PULSE 70
[2023-08-07] MEDS: INSULIN (LEVEMIR) 100 UNITS/ML UNITS SQ SCH (22:52)
[2023-08-07] MEDS: INSULIN ASPART SLIDING SCALE (NOVOLOG) 1 VIAL SQ SCH (22:53)
[2023-08-07] MEDS: INSULIN (LEVEMIR) 100 UNITS/ML UNITS SQ ONE (23:18)
[2023-08-08] MEDS: INSULIN (LEVEMIR) 100 UNITS/ML UNITS SQ SCH (06:29)
[2023-08-08 06:53] VITALS: BP 105/68; TEMP 97.9
[2023-08-08] MEDS: SULFAMETHOXAZOLE/TRIMETHOPRIM 800MG/160MG D.S. TABLET PO SCH (10:20)
[2023-08-12] MEDS ORDERED: ERGOCALCIFEROL (VIT D2) 50,000 UNIT (1.25 MG) CAPSULE PO SCH (10:00)
== END 2023-08-08 12:02 | disposition home or self-care (01) | DRG 463 ==
LOC: JER 15:41 → JERBED 22:22 → J8W 08-06 01:16
PROVIDERS: ADMIT Internal Medicine; ATTEND Nurse Practitioner Acute Care
DX: N39.0 Urinary tract infection, site not specified (principal); B20 Human immunodeficiency virus [HIV] disease; E11.40 Type 2 diabetes mellitus with diabetic neuropathy, unspecified; E11.65 Type 2 diabetes mellitus with hyperglycemia; E83.42 Hypomagnesemia; I10 Essential (primary) hypertension; E78.5 Hyperlipidemia, unspecified
CPT/HCPCS: 0241U-QW; 36415; 74177-TC; 80048; 80053; 81003; 82962; 83735; 84100; 85025; 85027; 87086; 87186; 93005; 93010; 99285-25; J0131; Q9967

== ENCOUNTER 2023-10-23 03:26 | Observation (INO) | payer OTHER ==
[2023-10-23 03:31] VITALS: BMI 23.8
[2023-10-23] MEDS: ACETAMINOPHEN 1000 MG/100 ML BAG IVPB ONE (04:12)
[2023-10-23] MEDS: SODIUM CHLORIDE 1,000 ML IV STA (04:12)
[2023-10-23] MEDS ORDERED: ACETAMINOPHEN INJECTION 100 ML IVPB ONE (04:16)
[2023-10-23 04:59] LABS: BASO % 0.3 % (0-2.0); EOS % 0.3 % (0-4.5); HEMATOCRIT 37.7 % (32.4-45.2); HEMOGLOBIN 12.6 GM/dL (10.7-15.3); LYMPH % 25.8 % (8-40); MCH 28.3 pg (25.7-33.7); MCHC 33.3 g/dl (32.0-36.0); MEAN CELL VOLUME 84.9 fl (80-96); MEAN PLT VOLUME 8.8 fl (7.5-11.1); MONO % 10.4 % (3.8-10.2); NEUT % 63.2 % (42.8-82.8); PLATELET COUNT 268 10^3/uL (134-434); RBC 4.43 M/mm3 (3.60-5.2); RDW 12.7 % (11.6-15.6); WHITE BLOOD COUNT 9.1 K/mm3 (4.0-10.0)
[2023-10-23 05:09] LABS: INR 1.07 (0.83-1.09); PROTHROMBIN TIME (PATIENT) 12.3 SEC (9.7-13.0)
[2023-10-23 05:11] LABS: ACTIVATED PTT 27.3 SECONDS (25.2-36.5)
[2023-10-23 05:18] LABS: POTASSIUM 4.2 mmol/L (3.5-5.1)
[2023-10-23 05:20] LABS: ALBUMIN 3.2 g/dl (3.4-5.0)
[2023-10-23 05:21] LABS: BLOOD UREA NITROGEN 7.2 mg/dL (7-18); MAGNESIUM 1.6 mg/dL (1.8-2.4)
[2023-10-23 05:23] LABS: CREATININE 0.8 mg/dL (0.55-1.3)
[2023-10-23 05:25] LABS: BILIRUBIN,TOTAL 0.3 mg/dL (0.2-1); PHOSPHOROUS 3.6 mg/dL (2.5-4.9); TOT PROT 6.4 g/dl (6.4-8.2)
[2023-10-23] MEDS ORDERED: KETOROLAC TROMETHAMINE 30 MG/1 ML VIAL ONE (11:23)
[2023-10-23] MEDS: KETOROLAC TROMETHAMINE 30 MG/1 ML VIAL IVPUSH ONE (11:30)
[2023-10-23 11:40] LABS: URINE APPEARANCE CLEAR; URINE BILIRUBIN NEGATIVE (NEGATIVE); URINE COLOR YELLOW; URINE GLUCOSE (UA) 3+ (NEGATIVE); URINE KETONE NEGATIVE (NEGATIVE); URINE LEUK ESTERASE NEGATIVE (NEGATIVE); URINE NITRITE NEGATIVE (NEGATIVE); URINE PROTEIN NEGATIVE (NEGATIVE); URINE UROBILINOGEN 0.2 mg/dL (0.2-1.0)
[2023-10-23] MEDS ORDERED: ONDANSETRON 4 MG/2 ML VIAL IVPUSH PRN (15:08)
[2023-10-23] MEDS: LACTATED RINGERS SOLUTION 1,000 ML/1,000 ML INFUS.BAG IV SCH (15:28)
[2023-10-23] MEDS ORDERED: INSULIN ASPART SLIDING SCALE (NOVOLOG) 1 VIAL SQ ONE ×2 (17:55→23:08)
[2023-10-23] MEDS: INSULIN ASPART SLIDING SCALE (NOVOLOG) 1 VIAL SQ SCH (18:05)
[2023-10-23] MEDS ORDERED: CIPROFLOXACIN 400 MG/D5W 400 MG/200 ML IVPB IVPB SCH (22:00)
[2023-10-23] MEDS ORDERED: HEPARIN NA (PORCINE) 5,000 UNITS/ML 1ML VIAL ONE (23:07)
[2023-10-23] MEDS ORDERED: INSULIN (LEVEMIR) 100 UNITS/ML UNITS SQ ONE (23:09)
[2023-10-23] MEDS: INSULIN (LEVEMIR) 100 UNITS/ML UNITS SQ SCH (23:13)
[2023-10-23] MEDS: HEPARIN NA (PORCINE) 5,000 UNITS/ML 1ML VIAL SQ SCH (23:14)
[2023-10-24 06:51] VITALS: RESP 18
[2023-10-24 07:44] LABS: POTASSIUM 4.3 mmol/L (3.5-5.1)
[2023-10-24 07:54] LABS: CALCIUM 8.5 mg/dL (8.5-10.1)
[2023-10-24 07:56] LABS: BLOOD UREA NITROGEN 5.7 mg/dL (7-18)
[2023-10-24 07:58] LABS: CREATININE 0.5 mg/dL (0.55-1.3)
[2023-10-24 08:08] LABS: BASO % 0.2 % (0-2.0); EOS % 0.7 % (0-4.5); HEMOGLOBIN 12.2 GM/dL (10.7-15.3); LYMPH % 45.1 % (8-40); MCH 28.7 pg (25.7-33.7); MCHC 33.9 g/dl (32.0-36.0); MEAN CELL VOLUME 84.7 fl (80-96); MEAN PLT VOLUME 9.6 fl (7.5-11.1); MONO % 10.3 % (3.8-10.2); NEUT % 43.7 % (42.8-82.8); PLATELET COUNT 250 10^3/uL (134-434); RBC 4.26 M/mm3 (3.60-5.2); WHITE BLOOD COUNT 6.6 K/mm3 (4.0-10.0)
[2023-10-24] MEDS ORDERED: LISINOPRIL 5 MG TABLET ONE (08:56)
[2023-10-24] MEDS ORDERED: HEPARIN NA (PORCINE) 5,000 UNITS/ML 1ML VIAL ONE (08:56)
[2023-10-24] MEDS: LISINOPRIL 5 MG TABLET PO SCH (09:10)
[2023-10-24] MEDS: DOLUTEGRAVIR SODIUM 50 MG TABLET (NON-FORMULARY) PO SCH (09:10)
[2023-10-24] MEDS: ACETAMINOPHEN 500 MG TABLET (FP) PO PRN (09:11)
[2023-10-24] MEDS: EMTRICITABINE/TENOFOV ALAFENAM (DESCOVY) TABLET PO SCH (11:49)
[2023-10-24] MEDS ORDERED: INSULIN ASPART SLIDING SCALE (NOVOLOG) 1 VIAL SQ ONE ×3 (13:13→13:15)
[2023-10-24 18:48] VITALS: BP 130/70; PULSE 76; TEMP 98.3
== END 2023-10-24 19:29 | disposition home or self-care (01) ==
LOC: JER 03:26 → JERBED 14:48 → INTOOBSV 14:48 → UNDOADMOB 14:48 → JERBED 15:06 → J8W 10-24 14:33
PROVIDERS: ADMIT Internal Medicine; ATTEND Internal Medicine
PROC: 3E033NZ Introduction of Analgesics, Hypnotics, Sedatives into Peripheral Vein, Percutaneous Approach (ICD-10-PCS; principal; 2023-10-23)
PROC: 3E023GC Introduction of Other Therapeutic Substance into Muscle, Percutaneous Approach (ICD-10-PCS; 2023-10-23)
PROC: 3E013VG Introduction of Insulin into Subcutaneous Tissue, Percutaneous Approach (ICD-10-PCS; 2023-10-23)
PROC: 3E0333Z Introduction of Anti-inflammatory into Peripheral Vein, Percutaneous Approach (ICD-10-PCS; 2023-10-23)
PROC: 3E0337Z Introduction of Electrolytic and Water Balance Substance into Peripheral Vein, Percutaneous Approach (ICD-10-PCS; 2023-10-23)
PROC: 3E03329 Introduction of Other Anti-infective into Peripheral Vein, Percutaneous Approach (ICD-10-PCS; 2023-10-23)
DX: K52.9 Noninfective gastroenteritis and colitis, unspecified (principal); E11.9 Type 2 diabetes mellitus without complications; E78.5 Hyperlipidemia, unspecified; I10 Essential (primary) hypertension; Z87.440 Personal history of urinary (tract) infections; B20 Human immunodeficiency virus [HIV] disease; Z87.891 Personal history of nicotine dependence; Z88.8 Allergy status to other drugs, medicaments and biological substances
CPT/HCPCS: 0241U-QW; 36415; 74177-TC; 80048; 80053; 81003; 82962; 83735; 84100; 85025; 85610; 85730; 87086; 87186; 93005; 93010; 96361; 96367; 96372; 96374; 96375; 99285-25; G0378; J0131; J1644; Q9967

== ENCOUNTER 2023-10-31 11:15 | Inpatient (IN) | payer OTHER ==
[2023-10-31 12:12] VITALS: BMI 25.0
[2023-10-31 13:20] LABS: EPI CELLS 26 /uL (0-25.1); HYALINE CASTS 2 /uL (0-3.1); PH,URINE 5.5 (5.0-8.0); URINE APPEARANCE CLEAR; URINE BACTERIA 17 /uL (0-1359); URINE BILIRUBIN NEGATIVE (NEGATIVE); URINE COLOR YELLOW; URINE GLUCOSE (UA) 3+ (NEGATIVE); URINE KETONE NEGATIVE (NEGATIVE); URINE LEUK ESTERASE 1+ (NEGATIVE); URINE NITRITE NEGATIVE (NEGATIVE); URINE PROTEIN NEGATIVE (NEGATIVE); URINE RBC 11 /uL (0-23.9); URINE UROBILINOGEN 0.2 mg/dL (0.2-1.0); URINE WBC 31 /uL (0-25.8)
[2023-10-31 13:23] LABS: BASO % 0.4 % (0-2.0); EOS % 1.3 % (0-4.5); HEMOGLOBIN 12.8 GM/dL (10.7-15.3); LYMPH % 34.4 % (8-40); MCH 28.5 pg (25.7-33.7); MEAN CELL VOLUME 86.3 fl (80-96); MEAN PLT VOLUME 8.9 fl (7.5-11.1); MONO % 8.5 % (3.8-10.2); NEUT % 55.4 % (42.8-82.8); PLATELET COUNT 335 10^3/uL (134-434); RBC 4.52 M/mm3 (3.60-5.2); WHITE BLOOD COUNT 10.4 K/mm3 (4.0-10.0)
[2023-10-31] MEDS: SODIUM CHLORIDE 0.9% 500 ML INFUS.BAG IV ONE (13:30)
[2023-10-31] MEDS: ACETAMINOPHEN 1000 MG/100 ML BAG IVPB ONE (13:31)
[2023-10-31] MEDS: METOCLOPRAMIDE HCL INJECTION 10 MG/2 ML VIAL IVPB ONE (13:31)
[2023-10-31 13:39] LABS: POTASSIUM 3.7 mmol/L (3.5-5.1)
[2023-10-31] MEDS ORDERED: METOCLOPRAMIDE HCL INJECTION 10 MG/2 ML VIAL ONE (13:39)
[2023-10-31] MEDS ORDERED: ACETAMINOPHEN INJECTION 100 ML IVPB ONE (13:39)
[2023-10-31 13:40] LABS: ACTIVATED PTT 28.1 SECONDS (25.2-36.5); INR 1.05 (0.83-1.09); PROTHROMBIN TIME (PATIENT) 11.9 SEC (9.7-13.0)
[2023-10-31 13:41] LABS: BLOOD UREA NITROGEN 6.8 mg/dL (7-18)
[2023-10-31 13:42] LABS: ALBUMIN 3.4 g/dl (3.4-5.0); MAGNESIUM 1.8 mg/dL (1.8-2.4)
[2023-10-31 13:44] LABS: CALCIUM 9.2 mg/dL (8.5-10.1); CREATININE 0.5 mg/dL (0.55-1.3)
[2023-10-31 13:46] LABS: BILIRUBIN,TOTAL 0.6 mg/dL (0.2-1); TOT PROT 7.2 g/dl (6.4-8.2)
[2023-10-31] MEDS: KETOROLAC TROMETHAMINE 15 MG/ML VIAL IVPUSH ONE (13:50)
[2023-10-31] MEDS ORDERED: KETOROLAC TROMETHAMINE 15 MG/ML VIAL ONE (14:02)
[2023-10-31] MEDS ORDERED: VANCOMYCIN 1,000 MG in DEXTROSE 5%-WATER - 250 ML IVPB ONE (17:21)
[2023-10-31] MEDS ORDERED: PIPERACILLIN/TAZOB 4.5 GM 4.5 GM/100 ML BAG IVPB ONE (17:31)
[2023-10-31] MEDS: PIPERACILLIN/TAZOB 4.5 GM 4.5 GM in DEXTROSE 5%-WATER 100 ML IVPB ONE (18:24)
[2023-10-31] MEDS ORDERED: MORPHINE SULFATE 2 MG/ML SYRINGE IVPUSH PRN (18:57)
[2023-10-31] MEDS ORDERED: ACETAMINOPHEN 1000 MG/100 ML BAG IVPB PRN (18:59)
[2023-10-31] MEDS: PANTOPRAZOLE SODIUM 40 MG VIAL IVPUSH SCH (19:27)
[2023-10-31] MEDS: DEXTROSE 5%-NORMAL SALINE 1,000 ML IV SCH (19:28)
[2023-10-31] MEDS: VANCOMYCIN/WATER FOR INJ (PEG) 1,000 MG/200 ML BAG IVPB ONE (19:35)
[2023-10-31] MEDS: VANCOMYCIN/WATER FOR INJ (PEG) 1,000 MG/250 ML BAG IVPB ONE (19:35)
[2023-10-31] MEDS: INSULIN ASPART SLIDING SCALE (NOVOLOG) 1 VIAL SQ SCH (21:55)
[2023-11-01] MEDS: PIPERACILLIN/TAZOB 3.375 GM 3.375 GM in DEXTROSE 5%-WATER - 50 ML IVPB SCH ×2 (01:19→20:18)
[2023-11-01 10:21] LABS: BASO % 0.2 % (0-2.0); EOS % 1.8 % (0-4.5); HEMATOCRIT 35.9 % (32.4-45.2); HEMOGLOBIN 11.9 GM/dL (10.7-15.3); LYMPH % 45.2 % (8-40); MCH 28.1 pg (25.7-33.7); MCHC 33.1 g/dl (32.0-36.0); MEAN CELL VOLUME 84.8 fl (80-96); MONO % 7.6 % (3.8-10.2); NEUT % 45.2 % (42.8-82.8); PLATELET COUNT 305 10^3/uL (134-434); RBC 4.23 M/mm3 (3.60-5.2); RDW 13.4 % (11.6-15.6); WHITE BLOOD COUNT 6.8 K/mm3 (4.0-10.0)
[2023-11-01] MEDS: ENOXAPARIN NA (PORCINE) 40 MG/0.4 ML DISP.SYRIN SQ SCH (10:24)
[2023-11-01 10:39] LABS: POTASSIUM 3.9 mmol/L (3.5-5.1)
[2023-11-01 10:45] LABS: ALBUMIN 2.9 g/dl (3.4-5.0); CALCIUM 8.6 mg/dL (8.5-10.1)
[2023-11-01 10:46] LABS: MAGNESIUM 1.7 mg/dL (1.8-2.4)
[2023-11-01 10:49] LABS: CREATININE 0.5 mg/dL (0.55-1.3); PHOSPHOROUS 2.6 mg/dL (2.5-4.9)
[2023-11-01 10:50] LABS: BILIRUBIN,TOTAL 0.4 mg/dL (0.2-1); TOT PROT 5.9 g/dl (6.4-8.2)
[2023-11-01] MEDS: EMTRICITABINE/TENOFOV ALAFENAM (DESCOVY) TABLET PO SCH (11:27)
[2023-11-01] MEDS: DOLUTEGRAVIR SODIUM 50 MG TABLET (NON-FORMULARY) PO SCH (11:27)
[2023-11-01] MEDS: LISINOPRIL 5 MG TABLET PO SCH (12:16)
[2023-11-02 07:50] LABS: BASO % 0.3 % (0-2.0); EOS % 1.8 % (0-4.5); HEMATOCRIT 33.7 % (32.4-45.2); LYMPH % 40.5 % (8-40); MCH 27.9 pg (25.7-33.7); MCHC 32.6 g/dl (32.0-36.0); MEAN CELL VOLUME 85.8 fl (80-96); MEAN PLT VOLUME 8.9 fl (7.5-11.1); MONO % 9.7 % (3.8-10.2); NEUT % 47.7 % (42.8-82.8); PLATELET COUNT 274 10^3/uL (134-434); RBC 3.93 M/mm3 (3.60-5.2); RDW 12.8 % (11.6-15.6)
[2023-11-02 08:15] LABS: ALBUMIN 2.6 g/dl (3.4-5.0); BLOOD UREA NITROGEN 8.1 mg/dL (7-18); CALCIUM 8.4 mg/dL (8.5-10.1); MAGNESIUM 1.5 mg/dL (1.8-2.4)
[2023-11-02 08:18] LABS: CREATININE 0.7 mg/dL (0.55-1.3)
[2023-11-02 08:20] LABS: BILIRUBIN,TOTAL 0.2 mg/dL (0.2-1); TOT PROT 5.5 g/dl (6.4-8.2)
[2023-11-02] MEDS: INSULIN ASPART SLIDING SCALE (NOVOLOG) 1 VIAL SQ SCH (16:48)
[2023-11-02] MEDS: MAGNESIUM OXIDE 400 MG TABLET (FP) PO ONE (16:48)
[2023-11-02] MEDS: INSULIN (LEVEMIR) 100 UNITS/ML UNITS SQ SCH (21:21)
[2023-11-03 08:25] LABS: BASO % 0.4 % (0-2.0); EOS % 1.7 % (0-4.5); HEMATOCRIT 33.8 % (32.4-45.2); LYMPH % 44.1 % (8-40); MCH 28.2 pg (25.7-33.7); MCHC 32.4 g/dl (32.0-36.0); MEAN CELL VOLUME 86.9 fl (80-96); MEAN PLT VOLUME 9.2 fl (7.5-11.1); MONO % 8.3 % (3.8-10.2); NEUT % 45.5 % (42.8-82.8); PLATELET COUNT 254 10^3/uL (134-434); RBC 3.89 M/mm3 (3.60-5.2); RDW 12.9 % (11.6-15.6)
[2023-11-03 08:43] LABS: CALCIUM 8.9 mg/dL (8.5-10.1)
[2023-11-03 08:44] LABS: ALBUMIN 2.8 g/dl (3.4-5.0); BLOOD UREA NITROGEN 9.5 mg/dL (7-18); MAGNESIUM 1.7 mg/dL (1.8-2.4)
[2023-11-03 08:48] LABS: CREATININE 0.7 mg/dL (0.55-1.3); TOT PROT 5.5 g/dl (6.4-8.2)
[2023-11-03 08:49] LABS: BILIRUBIN,TOTAL 0.2 mg/dL (0.2-1)
[2023-11-03] MEDS: MAGNESIUM OXIDE 400 MG TABLET (FP) PO ONE (10:57)
[2023-11-04 08:04] LABS: BASO % 0.4 % (0-2.0); HEMATOCRIT 34.2 % (32.4-45.2); HEMOGLOBIN 11.4 GM/dL (10.7-15.3); MCH 28.6 pg (25.7-33.7); MCHC 33.3 g/dl (32.0-36.0); MEAN PLT VOLUME 9.2 fl (7.5-11.1); MONO % 9.9 % (3.8-10.2); NEUT % 45.7 % (42.8-82.8); PLATELET COUNT 280 10^3/uL (134-434); RBC 3.97 M/mm3 (3.60-5.2); RDW 13.2 % (11.6-15.6); WHITE BLOOD COUNT 7.2 K/mm3 (4.0-10.0)
[2023-11-04 08:16] LABS: CHLORIDE 107 mmol/L (98-107); POTASSIUM 3.8 mmol/L (3.5-5.1); SODIUM 141 mmol/L (136-145)
[2023-11-04 08:18] LABS: ANION GAP 4 mmol/L (4-13); BLOOD UREA NITROGEN 7.6 mg/dL (7-18); CALCIUM 8.8 mg/dL (8.5-10.1); CO2 30 mmol/L (21-32)
[2023-11-04 08:19] LABS: GLUCOSE,RANDOM 219 mg/dL (74-106)
[2023-11-04 08:22] LABS: CREATININE 0.7 mg/dL (0.55-1.3)
[2023-11-04 08:27] LABS: POTASSIUM 3.9 mmol/L (3.5-5.1)
[2023-11-04 08:31] LABS: CALCIUM 8.8 mg/dL (8.5-10.1)
[2023-11-04 08:32] LABS: ALBUMIN 2.9 g/dl (3.4-5.0); BLOOD UREA NITROGEN 8.4 mg/dL (7-18); MAGNESIUM 1.6 mg/dL (1.8-2.4)
[2023-11-04 08:35] LABS: CREATININE 0.6 mg/dL (0.55-1.3); PHOSPHOROUS 3.5 mg/dL (2.5-4.9)
[2023-11-04 08:36] LABS: BILIRUBIN,TOTAL 0.4 mg/dL (0.2-1); TOT PROT 5.9 g/dl (6.4-8.2)
[2023-11-04] MEDS ORDERED: INSULIN ASPART SLIDING SCALE (NOVOLOG) 1 VIAL SQ ONE (11:35)
[2023-11-04] MEDS: POLYETHYLENE GLYCOL (HEALTHYLAX) 3350 17 GM PACKET PO SCH (13:00)
[2023-11-04] MEDS: MAGNESIUM OXIDE 400 MG TABLET (FP) PO ONE (14:25)
[2023-11-04 14:30] VITALS: BP 108/71; PULSE 65; RESP 19; TEMP 98.4
== END 2023-11-04 16:40 | disposition home or self-care (01) | DRG 249 ==
LOC: JER 11:15 → JERBED 17:25 → J7W 18:42 → OBSVTOIN 18:57
PROVIDERS: ADMIT Internal Medicine; ATTEND Nurse Practitioner Family
DX: K52.9 Noninfective gastroenteritis and colitis, unspecified (principal); I10 Essential (primary) hypertension; E78.5 Hyperlipidemia, unspecified; K59.00 Constipation, unspecified; K92.1 Melena; Z21 Asymptomatic human immunodeficiency virus [HIV] infection status; E83.42 Hypomagnesemia; R10.32 Left lower quadrant pain; E11.65 Type 2 diabetes mellitus with hyperglycemia; M79.89 Other specified soft tissue disorders
CPT/HCPCS: 0241U-QW; 36415; 74177-TC; 80048; 80053; 81003; 82272; 82962; 83036; 83605; 83690; 83735; 84100; 85025; 85610; 85730; 86140; 87015; 87045; 87046; 87086; 87207; 87209; 87324; 87328; 87329; 87449; 87798; 93005; 93010; 99285-25; G0378; J0131; Q9967

== ENCOUNTER 2024-07-06 10:20 | Inpatient (IN) | payer OTHER ==
[2024-07-06] MEDS: SODIUM CHLORIDE 0.9% 1000 ML INFUS.BAG IV STA (11:01)
[2024-07-06 11:06] LABS: VENOUS BASE EXCESS 0.4 mmol/L (-2-2); VENOUS PCO2 48.3 mmHg (38-52); VENOUS PH 7.357 (7.310-7.410)
[2024-07-06] MEDS ORDERED: ONDANSETRON 4 MG/2 ML VIAL ONE (11:06)
[2024-07-06 11:08] LABS: BASO % 0.2 % (0-2.0); EOS % 0.2 % (0-4.5); HEMATOCRIT 37.2 % (32.4-45.2); HEMOGLOBIN 12.3 GM/dL (10.7-15.3); LYMPH % 15.9 % (8-40); MCH 28.1 pg (25.7-33.7); MCHC 32.9 g/dl (32.0-36.0); MEAN CELL VOLUME 85.4 fl (80-96); MEAN PLT VOLUME 9.3 fl (7.5-11.1); MONO % 5.2 % (3.8-10.2); NEUT % 78.5 % (42.8-82.8); PLATELET COUNT 229 10^3/uL (134-434); RBC 4.36 M/mm3 (3.60-5.2); RDW 13.1 % (11.6-15.6); WHITE BLOOD COUNT 13.8 K/mm3 (4.0-10.0)
[2024-07-06 11:14] LABS: INR 1.21 (0.83-1.09); PROTHROMBIN TIME (PATIENT) 13.2 SEC (9.7-13.0)
[2024-07-06 11:17] LABS: ACTIVATED PTT 28.6 SECONDS (25.2-36.5)
[2024-07-06 11:22] LABS: POTASSIUM 4.1 mmol/L (3.5-5.1)
[2024-07-06] MEDS: ONDANSETRON 4 MG/2 ML VIAL IVPB ONE (11:24)
[2024-07-06 11:25] LABS: ALBUMIN 3.5 g/dl (3.4-5.0); BLOOD UREA NITROGEN 13.6 mg/dL (7-18)
[2024-07-06 11:28] LABS: CREATININE 0.8 mg/dL (0.55-1.3)
[2024-07-06 11:29] LABS: BILIRUBIN,TOTAL 0.7 mg/dL (0.2-1)
[2024-07-06 11:30] LABS: TOT PROT 7.4 g/dl (6.4-8.2)
[2024-07-06 11:36] LABS: LACTIC ACID 2.1 mmol/L (0.4-2.0)
[2024-07-06] MEDS ORDERED: ACETAMINOPHEN INJECTION 100 ML ONE (11:39)
[2024-07-06] MEDS: ACETAMINOPHEN 1000 MG/100 ML BAG IVPB ONE (11:47)
[2024-07-06] MEDS ORDERED: VANCOMYCIN 1 GM PREMIX (F) 1 GM/200 ML BAG ONE (12:16)
[2024-07-06 12:24] LABS: EPI CELLS 30 /uL (0-25.1); HYALINE CASTS 0 /uL (0-3.1); PH,URINE 5.5 (5.0-8.0); URINE APPEARANCE TURBID; URINE BACTERIA >9,000 /uL (0-1359); URINE BILIRUBIN NEGATIVE (NEGATIVE); URINE COLOR YELLOW; URINE GLUCOSE (UA) 3+ (NEGATIVE); URINE KETONE NEGATIVE (NEGATIVE); URINE LEUK ESTERASE 2+ (NEGATIVE); URINE NITRITE NEGATIVE (NEGATIVE); URINE PROTEIN 2+ (NEGATIVE); URINE RBC 82 /uL (0-23.9); URINE WBC 7280 /uL (0-25.8)
[2024-07-06] MEDS ORDERED: PIPERACILLIN/TAZOB 4.5 GM 4.5 GM/100 ML BAG IVPB ONE (12:38)
[2024-07-06] MEDS: VANCOMYCIN 1,000 MG in DEXTROSE 5%-WATER - 250 ML IVPB ONE (12:48)
[2024-07-06] MEDS: PIPERACILLIN/TAZOB 4.5 GM 4.5 GM in DEXTROSE 5%-WATER 100 ML IVPB ONE (12:48)
[2024-07-06 15:35] VITALS: BMI 26.9
[2024-07-06] MEDS: INSULIN ASPART SLIDING SCALE (NOVOLOG) 1 VIAL SQ SCH (17:15)
[2024-07-06] MEDS: ACETAMINOPHEN 500 MG TABLET (FP) PO PRN (18:08)
[2024-07-06] MEDS: HEPARIN NA (PORCINE) 5,000 UNITS/ML 1ML VIAL SQ SCH (21:43)
[2024-07-06] MEDS: AZTREONAM 1 GM in DEXTROSE 5%-WATER - 50 ML IVPB SCH (21:43)
[2024-07-06] MEDS: INSULIN (LEVEMIR) 100 UNITS/ML UNITS SQ SCH (21:45)
[2024-07-07 08:27] LABS: BASO % 0.1 % (0-2.0); EOS % 0.2 % (0-4.5); HEMATOCRIT 33.3 % (32.4-45.2); HEMOGLOBIN 10.9 GM/dL (10.7-15.3); LYMPH % 19.9 % (8-40); MCH 28.1 pg (25.7-33.7); MCHC 32.9 g/dl (32.0-36.0); MEAN CELL VOLUME 85.4 fl (80-96); MEAN PLT VOLUME 10.1 fl (7.5-11.1); MONO % 11.1 % (3.8-10.2); NEUT % 68.7 % (42.8-82.8); PLATELET COUNT 199 10^3/uL (134-434); RDW 12.9 % (11.6-15.6)
[2024-07-07 08:43] LABS: POTASSIUM 4.2 mmol/L (3.5-5.1)
[2024-07-07 08:45] LABS: BLOOD UREA NITROGEN 11.4 mg/dL (7-18); CALCIUM 8.5 mg/dL (8.5-10.1)
[2024-07-07 08:49] LABS: CREATININE 0.7 mg/dL (0.55-1.3)
[2024-07-07] MEDS: LISINOPRIL 5 MG TABLET PO SCH (09:26)
[2024-07-07] MEDS: EMTRICITABINE/TENOFOV ALAFENAM (DESCOVY) TABLET PO SCH (09:27)
[2024-07-07] MEDS: DOLUTEGRAVIR SODIUM 50 MG TABLET (NON-FORMULARY) PO SCH (09:27)
[2024-07-07] MEDS ORDERED: CEFTRIAXONE 1 GM in DEXTROSE 5%-WATER - 50 ML IVPB SCH (10:00)
[2024-07-07] MEDS: ACETAMINOPHEN 1000 MG/100 ML BAG IVPB ONE (10:32)
[2024-07-07 15:10] LABS: HIV INTERPRETATION PRESUMPTIVE POSITIVE (NEGATIVE)
[2024-07-07] MEDS: ACETAMINOPHEN 1000 MG/100 ML BAG IVPB PRN (17:58)
[2024-07-07] MEDS: SODIUM CHLORIDE 1,000 ML IV SCH (18:15)
[2024-07-07] MEDS: AZTREONAM 1 GM in DEXTROSE 5%-WATER - 50 ML IVPB ONE (18:53)
[2024-07-08] MEDS: AZTREONAM 2 GM in DEXTROSE 5%-WATER 100 ML IVPB SCH (02:38)
[2024-07-08] MEDS: KETOROLAC TROMETHAMINE 15 MG/ML VIAL IM PRN (03:30)
[2024-07-08 09:40] LABS: BASO % 0.3 % (0-2.0); EOS % 0.4 % (0-4.5); HEMATOCRIT 33.3 % (32.4-45.2); HEMOGLOBIN 11.1 GM/dL (10.7-15.3); LYMPH % 22.9 % (8-40); MCH 28.4 pg (25.7-33.7); MCHC 33.2 g/dl (32.0-36.0); MEAN CELL VOLUME 85.7 fl (80-96); MEAN PLT VOLUME 9.2 fl (7.5-11.1); MONO % 11.2 % (3.8-10.2); NEUT % 65.2 % (42.8-82.8); PLATELET COUNT 232 10^3/uL (134-434); RBC 3.89 M/mm3 (3.60-5.2); RDW 13.1 % (11.6-15.6); WHITE BLOOD COUNT 13.1 K/mm3 (4.0-10.0)
[2024-07-08 10:00] LABS: POTASSIUM 4.1 mmol/L (3.5-5.1)
[2024-07-08 10:16] LABS: CALCIUM 8.8 mg/dL (8.5-10.1)
[2024-07-08 10:17] LABS: BLOOD UREA NITROGEN 12.2 mg/dL (7-18); MAGNESIUM 1.9 mg/dL (1.8-2.4)
[2024-07-08 10:20] LABS: CREATININE 0.8 mg/dL (0.55-1.3)
[2024-07-08 10:22] LABS: BILIRUBIN,TOTAL 0.4 mg/dL (0.2-1)
[2024-07-08 10:28] LABS: ALBUMIN 2.8 g/dl (3.4-5.0)
[2024-07-08] MEDS: ERTAPENEM SODIUM 1 GM in SODIUM CHLORIDE 50 ML IVPB SCH (17:25)
[2024-07-08] MEDS: ACETAMINOPHEN 1000 MG/100 ML BAG IVPB PRN (18:26)
[2024-07-09] MEDS: ACETAMINOPHEN 1000 MG/100 ML BAG IVPB ONE (00:49)
[2024-07-09 02:06] VITALS: RESP 18
[2024-07-09 07:42] LABS: BASO % 0.2 % (0-2.0); HEMATOCRIT 32.2 % (32.4-45.2); HEMOGLOBIN 10.7 GM/dL (10.7-15.3); LYMPH % 23.8 % (8-40); MCH 28.4 pg (25.7-33.7); MCHC 33.3 g/dl (32.0-36.0); MEAN CELL VOLUME 85.3 fl (80-96); MEAN PLT VOLUME 8.9 fl (7.5-11.1); MONO % 11.3 % (3.8-10.2); NEUT % 63.7 % (42.8-82.8); PLATELET COUNT 259 10^3/uL (134-434); RBC 3.77 M/mm3 (3.60-5.2); RDW 12.8 % (11.6-15.6); WHITE BLOOD COUNT 10.5 K/mm3 (4.0-10.0)
[2024-07-09 08:07] LABS: ALBUMIN 2.4 g/dl (3.4-5.0); CALCIUM 8.5 mg/dL (8.5-10.1)
[2024-07-09 08:08] LABS: BLOOD UREA NITROGEN 9.2 mg/dL (7-18); MAGNESIUM 1.7 mg/dL (1.8-2.4)
[2024-07-09 08:10] LABS: BILIRUBIN,TOTAL 0.3 mg/dL (0.2-1); TOT PROT 5.8 g/dl (6.4-8.2)
[2024-07-09 08:11] LABS: CREATININE 0.6 mg/dL (0.55-1.3)
[2024-07-09] MEDS: INSULIN ASPART SLIDING SCALE (NOVOLOG) 1 VIAL SQ SCH (17:30)
[2024-07-09] MEDS: ACETAMINOPHEN 500 MG TABLET (FP) PO ONE (19:52)
[2024-07-10] MEDS: KETOROLAC TROMETHAMINE 30 MG/1 ML VIAL IM PRN (05:22)
[2024-07-10 08:12] LABS: BASO % 0.4 % (0-2.0); EOS % 1.8 % (0-4.5); HEMATOCRIT 31.6 % (32.4-45.2); HEMOGLOBIN 10.2 GM/dL (10.7-15.3); LYMPH % 31.6 % (8-40); MCH 27.9 pg (25.7-33.7); MCHC 32.4 g/dl (32.0-36.0); MEAN CELL VOLUME 85.9 fl (80-96); MEAN PLT VOLUME 8.3 fl (7.5-11.1); MONO % 12.1 % (3.8-10.2); NEUT % 54.1 % (42.8-82.8); PLATELET COUNT 297 10^3/uL (134-434); RBC 3.68 M/mm3 (3.60-5.2); RDW 13.1 % (11.6-15.6); WHITE BLOOD COUNT 10.3 K/mm3 (4.0-10.0)
[2024-07-10 08:32] LABS: POTASSIUM 4.2 mmol/L (3.5-5.1)
[2024-07-10 08:35] LABS: CALCIUM 8.8 mg/dL (8.5-10.1)
[2024-07-10 08:36] LABS: ALBUMIN 2.5 g/dl (3.4-5.0); MAGNESIUM 1.9 mg/dL (1.8-2.4)
[2024-07-10 08:39] LABS: CREATININE 0.7 mg/dL (0.55-1.3)
[2024-07-10 08:41] LABS: BILIRUBIN,TOTAL 0.4 mg/dL (0.2-1); TOT PROT 5.7 g/dl (6.4-8.2)
[2024-07-10] MEDS: ACETAMINOPHEN 325 MG TABLET (FP) PO PRN (18:38)
[2024-07-11 09:13] LABS: BASO % 0.7 % (0-2.0); EOS % 1.4 % (0-4.5); HEMOGLOBIN 10.3 GM/dL (10.7-15.3); LYMPH % 32.1 % (8-40); MCH 28.4 pg (25.7-33.7); MCHC 33.1 g/dl (32.0-36.0); MEAN CELL VOLUME 85.6 fl (80-96); MEAN PLT VOLUME 8.3 fl (7.5-11.1); MONO % 10.5 % (3.8-10.2); NEUT % 55.3 % (42.8-82.8); PLATELET COUNT 337 10^3/uL (134-434); RBC 3.62 M/mm3 (3.60-5.2); RDW 12.7 % (11.6-15.6)
[2024-07-11 09:19] LABS: POTASSIUM 4.4 mmol/L (3.5-5.1)
[2024-07-11 09:29] LABS: BLOOD UREA NITROGEN 8.1 mg/dL (7-18); CALCIUM 8.8 mg/dL (8.5-10.1)
[2024-07-11 09:30] LABS: ALBUMIN 2.5 g/dl (3.4-5.0)
[2024-07-11 09:33] LABS: CREATININE 0.7 mg/dL (0.55-1.3); TOT PROT 5.9 g/dl (6.4-8.2)
[2024-07-11 09:36] LABS: BILIRUBIN,TOTAL 0.3 mg/dL (0.2-1)
[2024-07-12 10:14] LABS: BASO % 0.5 % (0-2.0); EOS % 1.9 % (0-4.5); LYMPH % 37.8 % (8-40); MCH 28.1 pg (25.7-33.7); MCHC 32.5 g/dl (32.0-36.0); MEAN CELL VOLUME 86.5 fl (80-96); MEAN PLT VOLUME 8.1 fl (7.5-11.1); NEUT % 50.8 % (42.8-82.8); PLATELET COUNT 457 10^3/uL (134-434); RBC 3.93 M/mm3 (3.60-5.2); RDW 12.9 % (11.6-15.6); WHITE BLOOD COUNT 10.1 K/mm3 (4.0-10.0)
[2024-07-12 11:05] LABS: POTASSIUM 4.2 mmol/L (3.5-5.1)
[2024-07-12 11:07] LABS: CALCIUM 9.6 mg/dL (8.5-10.1)
[2024-07-12 11:10] LABS: CREATININE 0.7 mg/dL (0.55-1.3)
[2024-07-12 11:12] LABS: BILIRUBIN,TOTAL 0.2 mg/dL (0.2-1); TOT PROT 7.1 g/dl (6.4-8.2)
[2024-07-12 11:20] LABS: ALBUMIN 3.1 g/dl (3.4-5.0)
[2024-07-12 13:56] VITALS: TEMP 99
[2024-07-12] MEDS ORDERED: INSULIN (LEVEMIR) 100 UNITS/ML UNITS SQ SCH (16:44)
[2024-07-12 17:57] VITALS: BP 135/82; PULSE 77
== END 2024-07-12 18:37 | disposition home or self-care (01) | DRG 720 ==
LOC: JER 10:20 → JERBED 14:10 → J7W 15:01
PROVIDERS: ADMIT Internal Medicine; ATTEND Physician Assistant
DX: A41.89 Other specified sepsis (principal); I10 Essential (primary) hypertension; E78.5 Hyperlipidemia, unspecified; Z21 Asymptomatic human immunodeficiency virus [HIV] infection status; N39.0 Urinary tract infection, site not specified; B96.20 Unspecified Escherichia coli [E. coli] as the cause of diseases classified elsewhere; R00.0 Tachycardia, unspecified; N12 Tubulo-interstitial nephritis, not specified as acute or chronic; D72.829 Elevated white blood cell count, unspecified; E11.40 Type 2 diabetes mellitus with diabetic neuropathy, unspecified; E11.65 Type 2 diabetes mellitus with hyperglycemia; Z88.1 Allergy status to other antibiotic agents
CPT/HCPCS: 0241U-QW; 36415; 71045-TC-FY; 74176-TC; 76775-TC; 80048; 80053; 81003; 82803; 82962; 83605; 83735; 84484; 85025; 85610; 85730; 86803; 86850; 86900; 86901; 87040; 87086; 87186; 87389; 93005; 93010; 99291; J0131; J1644